=== PATIENT | female | born 1990 | race Caucasian/White ===

== ENCOUNTER 2016-08-03 10:04 | Emergency (ER) | payer MEDICAID | END 2016-08-03 11:33 | disposition home or self-care (01) | DX: T83.32XA Displacement of intrauterine contraceptive device, initial encounter (principal); Y84.8 Other medical procedures as the cause of abnormal reaction of the patient, or of later complication, without mention of misadventure at the time of the procedure; N93.9 Abnormal uterine and vaginal bleeding, unspecified ==

== ENCOUNTER 2016-09-04 18:03 | Outpatient (CLI) | payer MEDICAID | END 2016-09-04 18:04 | disposition critical access hospital (66) | LOC: EMS 18:03 | PROVIDERS: ATTEND Surgery | DX: R45.851 Suicidal ideations (principal) | CPT/HCPCS: A0425; A0429 ==

== ENCOUNTER 2016-09-04 18:19 | Emergency (ER) | payer MEDICAID ==
--- NOTE | 2016-09-04 18:29 | ED Physician Documentation ---
PD HPI MHE - Stated complaint Stated Complaint: SI - Chief complaint Chief Complaint: MHE - History obtained from History obtained from: Patient, EMS - History of Present Illness Primary symptom: Other (26-year-old woman presents by ambulance for resolved suicidal ideation. Basically there was a argument between her and her ex- boyfriend today and she was suicidal although says she is not now. 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 Psych: Depression, Anxiety, Post traumatic stress disorder Musculoskeletal: None Derm: Herpes zoster - Past Surgical History Past Surgical History: No - Present Medications Home Medications: Ambulatory Orders Medication Instructions Recorded Confirmed No Known Home Medications [No 08/03/16 08/03/16 Known Home Medications] - Allergies Allergies/Adverse Reactions: Allergies Allergy/AdvReac Type Severity Reaction Status Date / Time No Known Drug Allergies Allergy Verified 10/20/15 18:00 - Social History Does the pt smoke?: No Smoking Status: Never smoker Does the pt drink ETOH?: No Does the pt have substance abuse?: No - Family History Family history: reports: Non contributory - Immunizations Immunizations are current?: Yes - POLST Patient has POLST: No PD ED PE NORMAL - Vitals Vital signs reviewed: Yes - General General: Alert and oriented X 3, No acute distress - HEENT HEENT: PERRL, EOMI, Pharynx benign - Neck Neck: Supple, no meningeal sign, No bony TTP - Cardiac Cardiac: RRR, No murmur - Respiratory Respiratory: No respiratory distress, Clear bilaterally - Abdomen Abdomen: Soft, Non tender - Back Back: No CVA TTP, No spinal TTP - Derm Derm: Normal color, Warm and dry - Extremities Extremities: No edema, No calf tenderness / cord - Neuro Neuro: Alert and oriented X 3, Normal speech - Psych Psych: Normal mood, Normal affect Results - Vitals Vitals: Vital Signs - 24 hr 09/04/16 09/04/16 09/05/16 18:20 23:18 06:41 Temperature 36.6 C Heart Rate 105 H 76 68 Respiratory 20 20 14 Rate Blood Pressure 140/87 H 128/72 109/64 O2 Saturation 98 98 98 09/05/16 09:42 Temperature Heart Rate 68 Respiratory 12 Rate Blood Pressure 116/66 O2 Saturation 98 Oxygen O2 Source Room air - Labs Labs: Laboratory Tests 09/04/16 09/04/16 09/04/16 18:36 18:36 21:13 WBC 9.3 RBC 4.82 Hgb 14.1 Hct 42.1 MCV 87.5 MCH 29.4 MCHC 33.6 RDW 12.8 Plt Count 273 MPV 7.6 L Neut # 5.3 Lymph # 3.4 [place] # 0.6 Eos # 0.1 Baso # 0.0 Absolute Nucleated RBC 0.01 Nucleated RBCs 0.1 Sodium Potassium Chloride Carbon Dioxide Anion Gap BUN Creatinine Estimated GFR (MDRD) Glucose Calcium Total Bilirubin AST ALT Alkaline Phosphatase Total Protein Albumin Globulin Albumin/Globulin Ratio Lipase TSH Urine Color YELLOW Urine Clarity CLEAR Urine pH 6.5 Ur Specific [place] 1.025 Urine Protein NEGATIVE Urine Glucose (UA) NEGATIVE Urine Ketones NEGATIVE Urine Occult Blood NEGATIVE Urine Nitrite NEGATIVE Urine Bilirubin NEGATIVE Urine Urobilinogen 0.2 (NORMAL) Ur Leukocyte Esterase SMALL H Urine RBC 0-5 Urine WBC 0-3 Ur Squamous Epith Cells MOD Squamous H Urine Bacteria Few Urine Mucus Moderate Strands Ur Microscopic Review INDICATED Urine Culture Comments NOT INDICATED Urine HCG, Qual NEGATIVE Urine Opiates Screen NEGATIVE Ur Oxycodone Screen NEGATIVE Urine Methadone Screen NEGATIVE Ur Propoxyphene Screen NEGATIVE Ur Barbiturates Screen NEGATIVE Ur Tricyclics Screen NEGATIVE Ur Phencyclidine Scrn NEGATIVE Ur Amphetamine Screen NEGATIVE U Methamphetamines Scrn NEGATIVE U Benzodiazepines Scrn NEGATIVE Urine Cocaine Screen NEGATIVE U Cannabinoids Screen POSITIVE H Ethyl Alcohol 09/04/16 09/04/16 21:13 21:13 WBC RBC Hgb Hct MCV MCH MCHC RDW Plt Count MPV Neut # Lymph # [place] # Eos # Baso # Absolute Nucleated RBC Nucleated RBCs Sodium 139 Potassium 3.7 Chloride 104 Carbon Dioxide 27 Anion Gap 8.0 BUN 15 Creatinine 0.6 Estimated GFR (MDRD) 123 Glucose 98 Calcium 9.4 Total Bilirubin 0.7 AST 19 ALT 26 Alkaline Phosphatase 65 Total Protein 7.7 Albumin 4.6 Globulin 3.1 Albumin/Globulin Ratio 1.5 Lipase 21 L TSH 2.60 Urine Color Urine Clarity Urine pH Ur Specific [place] Urine Protein Urine Glucose (UA) Urine Ketones Urine Occult Blood Urine Nitrite Urine Bilirubin Urine Urobilinogen Ur Leukocyte Esterase Urine RBC Urine WBC Ur Squamous Epith Cells Urine Bacteria Urine Mucus Ur Microscopic Review Urine Culture Comments Urine HCG, Qual Urine Opiates Screen Ur Oxycodone Screen Urine Methadone Screen Ur Propoxyphene Screen Ur Barbiturates Screen Ur Tricyclics Screen Ur Phencyclidine Scrn Ur Amphetamine Screen U Methamphetamines Scrn U Benzodiazepines Scrn Urine Cocaine Screen U Cannabinoids Screen Ethyl Alcohol < 5.0 PD MEDICAL DECISION MAKING - ED course ED course: 26-year-old woman with resolved suicidal ideation but she feels like she does need to be voluntarily hospitalized. There is no barrier to voluntary hospitalization, but no social worker masters available at night so she requested for overnight to speak with a social worker masters in the morning. Departure - Departure Disposition: 01 Home, Self Care Clinical Impression: Suicidal ideation Condition: Good Instructions: ED Depression Follow-Up: [facility] - [place] [Provider Group] Comments: Please go to [facility] now for an intake assessment - it [place] block from the hospital on [address] Discharge Date/Time: 09/05/16 10:01
[2016-09-04 18:44] LABS: BILIRUBIN,URINE NEGATIVE (NEGATIVE); PH,URINE 6.5 PH (5.0-7.5)
[2016-09-04 18:47] LABS: HCG UR QUAL NEGATIVE; UA w/ MICROSCOPIC CHARGE YES
[2016-09-04 18:56] LABS: UR CULTURE IF IND NOT INDICATED; WBC,URINE 0-3 /HPF (0-5)
[2016-09-04] MEDS ORDERED: ACETAMINOPHEN 325 MG TABLET PO STA (18:57)
[2016-09-04] MEDS ORDERED: ACETAMINOPHEN 325 MG TABLET PO ONE (19:03)
[2016-09-04 21:29] LABS: BASOPHILS % (AUTO) 0.4 %; EOSINOPHILS # (AUTO) 0.1 10^3/uL (0.0-0.7); EOSINOPHILS % (AUTO) 0.7 %; HCT - HEMATOCRIT 42.1 % (37.0-47.0); HGB - HEMOGLOBIN 14.1 g/dL (12.0-16.0); LYMPHOCYTES # (AUTO) 3.4 10^3/uL (1.5-3.5); LYMPHOCYTES % (AUTO) 36.1 %; MEAN CORPUSCULAR HEMOGLOBIN 29.4 pg (27.0-31.0); MEAN CORPUSCULAR HGB CONC 33.6 g/dL (32.0-36.0); MEAN CORPUSCULAR VOLUME 87.5 fL (81.0-99.0); MEAN PLATELET VOLUME 7.6 fL (7.9-10.8); MONOCYTES # (AUTO) 0.6 10^3/uL (0.0-1.0); MONOCYTES % (AUTO) 6.3 %; NEUTROPHILS # (AUTO) 5.3 10^3/uL (1.5-6.6); NEUTROPHILS % (AUTO) 56.5 %; NUCLEATED RED BLOOD CELLS AUTO 0.1 /100WBC; RED BLOOD COUNT 4.82 10^6/uL (4.20-5.40); RED CELL DISTRIBUTION WIDTH 12.8 % (12.0-15.0); UNCORRECTED WHITE BLOOD COUNT 9.3 x10^3/uL; WHITE BLOOD COUNT 9.3 x10^3/uL (4.8-10.8)
[2016-09-04 21:44] LABS: ALBUMIN/GLOBULIN RATIO 1.5 (1.0-2.2); BILIRUBIN,TOTAL 0.7 mg/dL (0.2-1.0); BUN - BLOOD UREA NITROGEN 15 mg/dL (6-20); CALCIUM 9.4 mg/dL (8.5-10.3); CARBON DIOXIDE - CO2 27 mmol/L (21-32); CHLORIDE 104 mmol/L (101-111); CREATININE 0.6 mg/dL (0.4-1.0); GFR - MDRD 123 (>89); GLUCOSE 98 mg/dL (70-100); LIPASE 21 U/L (22-51); POTASSIUM 3.7 mmol/L (3.5-5.0); SODIUM 139 mmol/L (135-145); TOTAL PROTEIN 7.7 g/dL (6.7-8.2)
--- NOTE | 2016-09-05 08:09 | ED Physician Documentation ---
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 Psych: Depression, Anxiety, Post traumatic stress disorder Musculoskeletal: None Derm: Herpes zoster - Past Surgical History Past Surgical History: No - Present Medications Home Medications: Ambulatory Orders Medication Instructions Recorded Confirmed No Known Home Medications [No 08/03/16 08/03/16 Known Home Medications] - Allergies Allergies/Adverse Reactions: Allergies Allergy/AdvReac Type Severity Reaction Status Date / Time No Known Drug Allergies Allergy Verified 10/20/15 18:00 - Social History Does the pt smoke?: No Smoking Status: Never smoker Does the pt drink ETOH?: No Does the pt have substance abuse?: No - Immunizations Immunizations are current?: Yes - POLST Patient has POLST: No Results - Vitals Vitals: Vital Signs - 24 hr 09/04/16 09/04/16 09/05/16 18:20 23:18 06:41 Temperature 36.6 C Heart Rate 105 H 76 68 Respiratory 20 20 14 Rate Blood Pressure 140/87 H 128/72 109/64 O2 Saturation 98 98 98 09/05/16 09:42 Temperature Heart Rate 68 Respiratory 12 Rate Blood Pressure 116/66 O2 Saturation 98 Oxygen O2 Source Room air - Labs Labs: Laboratory Tests 09/04/16 09/04/16 09/04/16 18:36 18:36 21:13 WBC 9.3 RBC 4.82 Hgb 14.1 Hct 42.1 MCV 87.5 MCH 29.4 MCHC 33.6 RDW 12.8 Plt Count 273 MPV 7.6 L Neut # 5.3 Lymph # 3.4 [place] # 0.6 Eos # 0.1 Baso # 0.0 Absolute Nucleated RBC 0.01 Nucleated RBCs 0.1 Sodium Potassium Chloride Carbon Dioxide Anion Gap BUN Creatinine Estimated GFR (MDRD) Glucose Calcium Total Bilirubin AST ALT Alkaline Phosphatase Total Protein Albumin Globulin Albumin/Globulin Ratio Lipase TSH Urine Color YELLOW Urine Clarity CLEAR Urine pH 6.5 Ur Specific [place] 1.025 Urine Protein NEGATIVE Urine Glucose (UA) NEGATIVE Urine Ketones NEGATIVE Urine Occult Blood NEGATIVE Urine Nitrite NEGATIVE Urine Bilirubin NEGATIVE Urine Urobilinogen 0.2 (NORMAL) Ur Leukocyte Esterase SMALL H Urine RBC 0-5 Urine WBC 0-3 Ur Squamous Epith Cells MOD Squamous H Urine Bacteria Few Urine Mucus Moderate Strands Ur Microscopic Review INDICATED Urine Culture Comments NOT INDICATED Urine HCG, Qual NEGATIVE Urine Opiates Screen NEGATIVE Ur Oxycodone Screen NEGATIVE Urine Methadone Screen NEGATIVE Ur Propoxyphene Screen NEGATIVE Ur Barbiturates Screen NEGATIVE Ur Tricyclics Screen NEGATIVE Ur Phencyclidine Scrn NEGATIVE Ur Amphetamine Screen NEGATIVE U Methamphetamines Scrn NEGATIVE U Benzodiazepines Scrn NEGATIVE Urine Cocaine Screen NEGATIVE U Cannabinoids Screen POSITIVE H Ethyl Alcohol 09/04/16 09/04/16 21:13 21:13 WBC RBC Hgb Hct MCV MCH MCHC RDW Plt Count MPV Neut # Lymph # [place] # Eos # Baso # Absolute Nucleated RBC Nucleated RBCs Sodium 139 Potassium 3.7 Chloride 104 Carbon Dioxide 27 Anion Gap 8.0 BUN 15 Creatinine 0.6 Estimated GFR (MDRD) 123 Glucose 98 Calcium 9.4 Total Bilirubin 0.7 AST 19 ALT 26 Alkaline Phosphatase 65 Total Protein 7.7 Albumin 4.6 Globulin 3.1 Albumin/Globulin Ratio 1.5 Lipase 21 L TSH 2.60 Urine Color Urine Clarity Urine pH Ur Specific [place] Urine Protein Urine Glucose (UA) Urine Ketones Urine Occult Blood Urine Nitrite Urine Bilirubin Urine Urobilinogen Ur Leukocyte Esterase Urine RBC Urine WBC Ur Squamous Epith Cells Urine Bacteria Urine Mucus Ur Microscopic Review Urine Culture Comments Urine HCG, Qual Urine Opiates Screen Ur Oxycodone Screen Urine Methadone Screen Ur Propoxyphene Screen Ur Barbiturates Screen Ur Tricyclics Screen Ur Phencyclidine Scrn Ur Amphetamine Screen U Methamphetamines Scrn U Benzodiazepines Scrn Urine Cocaine Screen U Cannabinoids Screen Ethyl Alcohol < 5.0 PD MEDICAL DECISION MAKING - ED course ED course: assumed care 7 AM 09/[address] Landin's EMR note for details pt with SI, medically cleared, waiting for SW to see her this AM I went to eval pt she was resting but awakened easily, no new concerns, RRR CTAB seen by BAKARI Clay and she recommends pt be dced to go straight to [facility] for an intake assesment Departure - Departure Disposition: 01 Home, Self Care Clinical Impression: Suicidal ideation Condition: Good Instructions: ED Depression Follow-Up: [facility] - [facility] [Provider Group] Comments: Please go to [facility] now for an intake assessment - it is one block from the hospital on [address]
[2016-09-05 09:43] VITALS: BP 116/66
== END 2016-09-05 10:01 | disposition home or self-care (01) ==
LOC: EDUNIT# → ED 18:19
DX: F32.9 Major depressive disorder, single episode, unspecified (principal); R45.851 Suicidal ideations; F41.9 Anxiety disorder, unspecified; F43.10 Post-traumatic stress disorder, unspecified
CPT/HCPCS: 36415; 80053; 80306; 80320; 81001; 81025; 83690; 84443; 85025; 99283; 99284; A9270; 81003; 87086

== ENCOUNTER 2016-11-29 20:53 | Outpatient (CLI) | payer MEDICAID | END 2016-11-29 20:54 | disposition critical access hospital (66) | LOC: EMS 20:53 | PROVIDERS: ATTEND Surgery | DX: F91.8 Other conduct disorders (principal) | CPT/HCPCS: A0425; A0429 ==

== ENCOUNTER 2016-11-29 21:10 | Emergency (ER) | payer MEDICAID ==
[2016-11-29 21:23] VITALS: BP 129/86
[2016-11-29 21:37] LABS: BASOPHILS % (AUTO) 0.7 %; EOSINOPHILS % (AUTO) 0.7 %; HCT - HEMATOCRIT 39.7 % (37.0-47.0); HGB - HEMOGLOBIN 13.7 g/dL (12.0-16.0); LYMPHOCYTES % (AUTO) 17.6 %; MEAN CORPUSCULAR HEMOGLOBIN 29.8 pg (27.0-31.0); MEAN CORPUSCULAR HGB CONC 34.6 g/dL (32.0-36.0); MEAN CORPUSCULAR VOLUME 86.1 fL (81.0-99.0); MEAN PLATELET VOLUME 7.1 fL (7.9-10.8); MONOCYTES % (AUTO) 5.4 %; NEUTROPHILS % (AUTO) 75.6 %; RED BLOOD COUNT 4.61 10^6/uL (4.20-5.40); RED CELL DISTRIBUTION WIDTH 12.4 % (12.0-15.0); UNCORRECTED WHITE BLOOD COUNT 12.3 x10^3/uL; WHITE BLOOD COUNT 12.3 x10^3/uL (4.8-10.8)
--- NOTE | 2016-11-29 21:38 | ED Physician Documentation ---
PD HPI MHE - Stated complaint Stated Complaint: MHE - Chief complaint Chief Complaint: MHE - History obtained from History obtained from: Patient, Friend, EMS - History of Present Illness Primary symptom: Suicidal ideation, Self harm - other, Depression, Aggressive behavior, Off meds Timing - onset: Today Contributing factors: Family Similar symptoms before: Work up / diagnostics, Treatment, Follow up Recently seen: Not recently seen - Additional information Additional information: Patient is a 26 year old female with a history of anxiety, depression and ptsd who currently is not taking any medications who is presenting to the emergency department for agitation and suicidal ideation. Patient states that her ex came over the house and stated that he wanted custody of the children. patient became very upset and kept hitting her head against the wall and hitting herself throughout her body including her throat. Patient states that she was looking for a knife to stab herself in the abdomen. Patient states she had the same reaction last week when he asked for custody. Review of Systems Constitutional: denies: Fever, Chills Eyes: denies: Decreased vision, Photophobia, Irritation Ears: denies: Ear pain, Drainage/discharge Nose: denies: Rhinorrhea / runny nose, Congestion Throat: denies: Dental pain / toothache, Sore throat Respiratory: denies: Cough, Wheezing GI: denies: Nausea, Vomiting, Constipation, Diarrhea : denies: Dysuria, Frequency, Hesitancy Skin: denies: Rash, Lesions Musculoskeletal: denies: Neck pain, Back pain Neurologic: denies: Generalized weakness, Focal weakness, Numbness Psychiatric: reports: Depressed. 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 Psych: Depression, Anxiety, Post traumatic stress disorder Musculoskeletal: None Derm: Herpes zoster - Past Surgical History Past Surgical History: No - Present Medications Home Medications: Ambulatory Orders Medication Instructions Recorded Confirmed No Known Home Medications [No 08/03/16 08/03/16 Known Home Medications] - Allergies Allergies/Adverse Reactions: Allergies Allergy/AdvReac Type Severity Reaction Status Date / Time No Known Drug Allergies Allergy Verified 10/20/15 18:00 - Social History Does the pt smoke?: No Smoking Status: Never smoker Does the pt drink ETOH?: No Does the pt have substance abuse?: No - Immunizations Immunizations are current?: Yes - POLST Patient has POLST: No PD ED PE NORMAL - Vitals Vital signs reviewed: Yes - General General: Alert and oriented X 3, No acute distress, Well developed/nourished - HEENT HEENT: Atraumatic, Moist mucous membranes, Pharynx benign, Dentition benign - Neck Neck: Supple, no meningeal sign, No bony TTP - Cardiac Cardiac: RRR, No murmur - Respiratory Respiratory: No respiratory distress - Abdomen Abdomen: Soft - Derm Derm: Normal color, Warm and dry - Neuro Neuro: Alert and oriented X 3, No motor deficit, No sensory deficit, Normal speech PD ED PE EXPANDED - Extremities Extremities: Right shoulder (full rom, no bony deformity or tenderness), Right hand (tenderness to palpation of right hand, no bony tenderness, no ecchymosis) - Psych Psych: Agitated. No: Suicidal, Homicidal Results - Vitals Vitals: Vital Signs - 24 hr 11/29/16 21:21 Temperature 37.3 C Heart Rate 66 Respiratory 16 Rate Blood Pressure 129/86 H O2 Saturation 96 Oxygen O2 Source Room air - Labs Labs: Laboratory Tests 11/29/16 11/29/16 11/29/16 21:26 21:26 21:26 WBC 12.3 H RBC 4.61 Hgb 13.7 Hct 39.7 MCV 86.1 MCH 29.8 MCHC 34.6 RDW 12.4 Plt Count 265 MPV 7.1 L Neut # Not Reportable Lymph # Not Reportable [place] # Not Reportable Eos # Not Reportable Baso # Not Reportable Absolute Nucleated RBC Not Reportable Total Counted 100 Band Neuts % (Manual) 0 Neutrophils # (Manual) 7.3 H Lymphocytes # (Manual) 4.4 H Monocytes # (Manual) 0.6 Nucleated RBCs Not Reportable Differential Comment MANUAL DIFFERENTIAL Manual Slide Review Indicated Platelet Estimate NORMAL (130-450,000) Platelet Morphology NORMAL APPEARANCE RBC Morph Micro Appear NORMAL APPEARANCE Sodium 138 Potassium 3.5 Chloride 106 Carbon Dioxide 25 Anion Gap 7.0 BUN 18 Creatinine 0.8 Estimated GFR (MDRD) 88 L Glucose 106 H Calcium 9.2 Total Bilirubin 1.0 AST 18 ALT 17 Alkaline Phosphatase 60 Total Protein 7.3 Albumin 4.4 Globulin 2.9 Albumin/Globulin Ratio 1.5 Lipase 28 TSH 2.02 Ur Specific [place] Urine HCG, Qual Salicylates < 6.0 Urine Opiates Screen Ur Oxycodone Screen Urine Methadone Screen Ur Propoxyphene Screen Acetaminophen < 10 L Ur Barbiturates Screen Ur Tricyclics Screen Ur Phencyclidine Scrn Ur Amphetamine Screen U Methamphetamines Scrn U Benzodiazepines Scrn Urine Cocaine Screen U Cannabinoids Screen Ethyl Alcohol < 5.0 11/29/16 11/29/16 22:20 22:20 WBC RBC Hgb Hct MCV MCH MCHC RDW Plt Count MPV Neut # Lymph # [place] # Eos # Baso # Absolute Nucleated RBC Total Counted Band Neuts % (Manual) Neutrophils # (Manual) Lymphocytes # (Manual) Monocytes # (Manual) Nucleated RBCs Differential Comment Manual Slide Review Platelet Estimate Platelet Morphology RBC Morph Micro Appear Sodium Potassium Chloride Carbon Dioxide Anion Gap BUN Creatinine Estimated GFR (MDRD) Glucose Calcium Total Bilirubin AST ALT Alkaline Phosphatase Total Protein Albumin Globulin Albumin/Globulin Ratio Lipase TSH Ur Specific [place] 1.020 Urine HCG, Qual NEGATIVE Salicylates Urine Opiates Screen NEGATIVE Ur Oxycodone Screen NEGATIVE Urine Methadone Screen NEGATIVE Ur Propoxyphene Screen NEGATIVE Acetaminophen Ur Barbiturates Screen NEGATIVE Ur Tricyclics Screen NEGATIVE Ur Phencyclidine Scrn NEGATIVE Ur Amphetamine Screen NEGATIVE U Methamphetamines Scrn NEGATIVE U Benzodiazepines Scrn NEGATIVE Urine Cocaine Screen NEGATIVE U Cannabinoids Screen NEGATIVE Ethyl Alcohol PD MEDICAL DECISION MAKING - ED course Complexity details: reviewed old records, re-evaluated patient, considered differential, d/w patient, d/w family ED course: Patient was seen and examined at bedside. After being originally agitated patient calmed down quickly. Patients injuries required no imaging. Patient denied any suicidal or homicidal ideation. Patient stated that she would stay away from her ex- and go home with her current boyfriend. Patient and boyfriend felt safe and comfortable with the plan. patient required no further work up and was stable for discharge with outpatietn follow up. Departure - Departure Disposition: Home, Self Care Clinical Impression: Self-harm Condition: Good Instructions: ED Stress React Follow-Up: primary, therapist [Other] - Tomorrow Comments: It is important that your follow up with your therapist this week. You might have more pain tomorrow and you can take motrin or tylenol as needed for pain. You should also ice the injured areas. You should return to the emergency department for any thoughts of hurting yourself or anyone else. Discharge Date/Time: 11/29/16 22:24
[2016-11-29 21:40] LABS: BAND NEUTROPHILS % (MANUAL) 0 %
[2016-11-29 21:48] LABS: ALBUMIN/GLOBULIN RATIO 1.5 (1.0-2.2); BUN - BLOOD UREA NITROGEN 18 mg/dL (6-20); CALCIUM 9.2 mg/dL (8.5-10.3); CARBON DIOXIDE - CO2 25 mmol/L (21-32); CHLORIDE 106 mmol/L (101-111); CREATININE 0.8 mg/dL (0.4-1.0); GFR - MDRD 88 (>89); GLUCOSE 106 mg/dL (70-100); LIPASE 28 U/L (22-51); POTASSIUM 3.5 mmol/L (3.5-5.0); SALICYLATE < 6.0 mg/dL; SODIUM 138 mmol/L (135-145); TOTAL PROTEIN 7.3 g/dL (6.7-8.2)
[2016-11-29 21:50] LABS: ACETAMINOPHEN < 10 ug/mL (10-30)
[2016-11-29 22:03] LABS: LYMPHOCYTES % (MANUAL) 36 %; NEUTROPHILS % (MANUAL) 59 %; TOTAL CELLS COUNTED 100
[2016-11-29 22:04] LABS: NP AUTO DIFFERENTIAL? YES; NP MAN DIFFERENTIAL? NO; PLATELET ESTIMATE, MANUAL NORMAL (130-450,000) (NORMAL); PLATELET MORPHOLOGY NORMAL APPEARANCE (NORMAL)
[2016-11-29 22:32] LABS: HCG UR QUAL NEGATIVE
== END 2016-11-29 22:24 | disposition home or self-care (01) ==
LOC: EDUNIT# → ED 21:10
DX: R45.1 Restlessness and agitation (principal); Z91.5 Personal history of self-harm; F32.9 Major depressive disorder, single episode, unspecified; F41.9 Anxiety disorder, unspecified; M79.641 Pain in right hand
CPT/HCPCS: 36415; 80053; 80306; 80307; 80320; 80329; 81025; 83690; 84443; 85025; 99283

== ENCOUNTER 2016-12-08 10:59 | Emergency (ER) | payer OTHER, MEDICAID ==
[2016-12-08 11:06] VITALS: BP 121/75
[2016-12-08 11:27] LABS: HCG UR QUAL NEGATIVE
[2016-12-08] MEDS ORDERED: ACETAMINOPHEN 325 MG TABLET PO STA (11:28)
[2016-12-08] MEDS ORDERED: IBUPROFEN 600 MG TABLET PO STA (11:29)
--- NOTE | 2016-12-08 11:32 | ED Physician Documentation ---
PD HPI Fall - Stated complaint Stated Complaint: GLF/LEFT SIDE PX - Chief complaint Chief Complaint: General - History obtained from History obtained from: Patient, Family - History of Present Illness Mechanism of injury: Slipped Fall distance: Standing position Where injury occurred: Work Timing - onset: How many hours ago (1.5) Injury(ies) location: Chest (L posterior ribs and low back), Back Pain level max: 6 Pain level now: 4 Quality of pain: Pain Associated symptoms: No: LOC, AMS, Amnesia, Seizures, Ear drainage, Nasal drainage, Neck pain, Weakness, Paresthesias, Dyspnea, Nausea / vomiting, Hematemesis, Abdominal distension Symptoms improve with: Rest Worsens with: Movement, Palpation Contributing factors: No: Anticoagulated, Intoxicated Similar symptoms before: Has not had sx before Recently seen: Not recently seen - Additional information Additional information: states tripped while cleaning a bathroom and hit her L side on the bathtub. Has not taken anything for pain. No LOC. No head injury. 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 Psych: Depression, Anxiety, Post traumatic stress disorder Musculoskeletal: None Derm: Herpes zoster - Past Surgical History Past Surgical History: No - Present Medications Home Medications: Ambulatory Orders Medication Instructions Recorded Confirmed Cyclobenzaprine [Flexeril] 10 mg PO TID PRN #20 tablet 12/08/16 Ibuprofen [Motrin] 800 mg PO Q8H PRN #30 tablet 12/08/16 - Allergies Allergies/Adverse Reactions: Allergies Allergy/AdvReac Type Severity Reaction Status Date / Time No Known Drug Allergies Allergy Verified 12/08/16 11:12 - Social History Does the pt smoke?: No Smoking Status: Never smoker Does the pt drink ETOH?: No Does the pt have substance abuse?: No - Immunizations Immunizations are current?: Yes - POLST Patient has POLST: No PD ED PE NORMAL - Vitals Vital signs reviewed: Yes - General General: Alert and oriented X 3, No acute distress, Well developed/nourished - HEENT HEENT: Atraumatic, PERRL, Moist mucous membranes - Neck Neck: Supple, no meningeal sign, No bony TTP - Cardiac Cardiac: RRR - Respiratory Respiratory: No respiratory distress, Clear bilaterally - Abdomen Abdomen: Soft, Non tender - Back Back: No spinal TTP, Other (TTP over the L posterior ribs 7-10. no crepitus. no ecchymosis) - Derm Derm: Warm and dry - Neuro Neuro: Alert and oriented X 3 - Psych Psych: Normal mood, Normal affect Results - Vitals Vitals: Vital Signs - 24 hr 12/08/16 11:02 Temperature 36.5 C Heart Rate 74 Respiratory 16 Rate Blood Pressure 121/75 O2 Saturation 99 Oxygen O2 Source Room air - Labs Labs: Laboratory Tests 12/08/16 11:05 Ur Specific [place] 1.025 Urine HCG, Qual NEGATIVE - Rads (name of study) L rib xray Radiology: Prelim report reviewed, EMP read contemporaneously, See rad report ( Normal chest and rib radiography) PD MEDICAL DECISION MAKING - ED course Complexity details: reviewed results, re-evaluated patient, considered differential, d/w patient, d/w family ED course: Patient is a 26-year-old female who presents to the emergency department after a slip and fall at work. No acute findings on x-ray. Pain well controlled. Appears to have some muscle spasm in the back as well and will prescribe Flexeril for this. She is well-appearing, nontoxic. Afebrile. No pneumothorax. Patient counseled regarding signs and symptoms for which I believe and urgent re-evaluation would be necessary. Patient with good understanding of and agreement to plan and is comfortable going home at this time This document was made in part using voice recognition software. While efforts are made to proofread this document, sound alike and grammatical errors may occur. Departure - Departure Disposition: 01 Home, Self Care Clinical Impression: Back muscle spasm Contusion of rib on left side Qualifiers: Encounter type: initial encounter Qualified Code(s): S20.212A - Contusion of left front wall of thorax, initial encounter Condition: Good Instructions: ED Contusion Chest Wall Follow-Up: your,doctor within 1 week [Other] Prescriptions: Cyclobenzaprine [Flexeril] 10 mg PO TID PRN #20 tablet PRN Reason: Spasms Ibuprofen [Motrin] 800 mg PO Q8H PRN #30 tablet PRN Reason: PAIN &/OR FEVER Comments: Return if you worsen. This should improve over the next few days. Do not drive or operate heavy machinery while on the flexeril. Forms: Activity restrictions Discharge Date/Time: 12/08/16 13:06
[2016-12-08] MEDS ORDERED: IBUPROFEN 600 MG TABLET PO ONE (11:36)
[2016-12-08] MEDS ORDERED: ACETAMINOPHEN 325 MG TABLET PO ONE (11:36)
--- NOTE | 2016-12-08 12:44 | XRAY Preliminary Report ---
Exam: XR Ribs w/PA Chest LT IMPRESSION: Normal chest and rib radiography. [facility] SITE ID: [id number]
[2016-12-08] MEDS ORDERED: CYCLOBENZAPRINE 10 MG TABLET PO STA (12:45)
--- NOTE | 2016-12-08 12:47 | XRAY Report ---
EXAM: PA CHEST AND LEFT RIB RADIOGRAPHY EXAM DATE: 12/08/2016 11:52 AM. CLINICAL HISTORY: Fall, L Lower rib pain. COMPARISON: None. TECHNIQUE: 1 view of the chest and 2 views of the ribs. FINDINGS: Bones: Normal. No fracture or bone lesion. Lungs: No focal opacities. No pneumothorax. No pleural effusions. Mediastinum: Heart and mediastinal contours are unremarkable. Other: None. IMPRESSION: Normal chest and rib radiography. [facility] Referring Provider Line: [phone] SITE ID: [id number]
[2016-12-08] MEDS ORDERED: CYCLOBENZAPRINE 10 MG TABLET PO ONE (12:51)
== END 2016-12-08 13:06 | disposition home or self-care (01) ==
LOC: ED 10:59
DX: M62.830 Muscle spasm of back (principal); S20.212A Contusion of left front wall of thorax, initial encounter; W01.0XXA Fall on same level from slipping, tripping and stumbling without subsequent striking against object, initial encounter; Y93.E9 Activity, other interior property and clothing maintenance; Y99.0 Civilian activity done for income or pay
CPT/HCPCS: 1040M; 71101; 81025; 99283; A9270

== ENCOUNTER 2016-12-22 11:20 | Outpatient (CLI) | payer MEDICAID | END 2016-12-22 11:21 | disposition critical access hospital (66) | LOC: EMS 11:20 | PROVIDERS: ATTEND Surgery | DX: S51.812A Laceration without foreign body of left forearm, initial encounter (principal); S51.811A Laceration without foreign body of right forearm, initial encounter; X78.9XXA Intentional self-harm by unspecified sharp object, initial encounter | CPT/HCPCS: A0425; A0429 ==

== ENCOUNTER 2016-12-22 11:41 | Emergency (ER) | payer MEDICAID ==
[2016-12-22 12:23] LABS: BASOPHILS % (AUTO) 0.6 %; EOSINOPHILS # (AUTO) 0.1 10^3/uL (0.0-0.7); EOSINOPHILS % (AUTO) 1.1 %; HCT - HEMATOCRIT 40.7 % (37.0-47.0); HGB - HEMOGLOBIN 14.1 g/dL (12.0-16.0); LYMPHOCYTES # (AUTO) 3.4 10^3/uL (1.5-3.5); LYMPHOCYTES % (AUTO) 44.6 %; MEAN CORPUSCULAR HEMOGLOBIN 29.9 pg (27.0-31.0); MEAN CORPUSCULAR HGB CONC 34.6 g/dL (32.0-36.0); MEAN CORPUSCULAR VOLUME 86.2 fL (81.0-99.0); MEAN PLATELET VOLUME 7.1 fL (7.9-10.8); MONOCYTES # (AUTO) 0.5 10^3/uL (0.0-1.0); MONOCYTES % (AUTO) 6.2 %; NEUTROPHILS # (AUTO) 3.6 10^3/uL (1.5-6.6); NEUTROPHILS % (AUTO) 47.5 %; RED BLOOD COUNT 4.72 10^6/uL (4.20-5.40); RED CELL DISTRIBUTION WIDTH 12.5 % (12.0-15.0); UNCORRECTED WHITE BLOOD COUNT 7.5 x10^3/uL; WHITE BLOOD COUNT 7.5 x10^3/uL (4.8-10.8)
[2016-12-22 12:36] LABS: ALBUMIN/GLOBULIN RATIO 1.5 (1.0-2.2); BILIRUBIN,TOTAL 1.4 mg/dL (0.2-1.0); BUN - BLOOD UREA NITROGEN 12 mg/dL (6-20); CALCIUM 9.1 mg/dL (8.5-10.3); CARBON DIOXIDE - CO2 25 mmol/L (21-32); CHLORIDE 108 mmol/L (101-111); CREATININE 0.5 mg/dL (0.4-1.0); GFR - MDRD 152 (>89); GLUCOSE 104 mg/dL (70-100); LIPASE 18 U/L (22-51); POTASSIUM 3.7 mmol/L (3.5-5.0); SALICYLATE < 6.0 mg/dL; SODIUM 141 mmol/L (135-145); TOTAL PROTEIN 7.6 g/dL (6.7-8.2)
--- NOTE | 2016-12-22 12:39 | ED Physician Documentation ---
PD HPI MHE - Stated complaint Stated Complaint: SI - Chief complaint Chief Complaint: MHE - History obtained from History obtained from: Patient - History of Present Illness Primary symptom: Suicidal ideation, Self harm - cut, Depression Timing - onset: Other (several days ago) Pain level max: 0 Pain level now: 0 Contributing factors: Family (fighting with family) Similar symptoms before: Diagnosis (depression, SI) Recently seen: Not recently seen - Additional information Additional information: [facility] has no counselor and no PCP. [facility] went to a facility in [facility] last year and feels that it helped. Review of Systems Ten Systems: 10 systems reviewed and negative Constitutional: denies: Fever, Chills Throat: denies: Sore throat Cardiac: denies: Chest pain / pressure Respiratory: denies: Cough GI: denies: Nausea, Vomiting, Diarrhea Skin: denies: Rash Musculoskeletal: denies: Neck pain, Back pain Neurologic: denies: Headache Psychiatric: reports: Depressed, Suicidal. denies: Homicidal, Hallucinations, Delusions, Insomnia PD PAST MEDICAL HISTORY - Past Medical History Past Medical History: Yes Endocrine/Autoimmune: None GI: None SECURITY REP: None : None Psych: Depression, Anxiety, Post traumatic stress disorder Musculoskeletal: None Derm: Herpes zoster - Past Surgical History Past Surgical History: No - Allergies Allergies/Adverse Reactions: Allergies Allergy/AdvReac Type Severity Reaction Status Date / Time No Known Drug Allergies Allergy Verified 12/08/16 11:12 - Living Situation Living Situation: reports: With family Living Arrangement: reports: At home - Social History Does the pt smoke?: No Smoking Status: Never smoker Does the pt drink ETOH?: No Does the pt have substance abuse?: No - Family History Family history: reports: Non contributory - Immunizations Immunizations are current?: Yes - POLST Patient has POLST: No PD ED PE NORMAL - Vitals Vital signs reviewed: Yes - General General: Alert and oriented X 3, No acute distress, Well developed/nourished - HEENT HEENT: PERRL, Moist mucous membranes - Neck Neck: Supple, no meningeal sign - Cardiac Cardiac: RRR, Strong equal pulses - Respiratory Respiratory: No respiratory distress, Clear bilaterally - Abdomen Abdomen: Soft, Non tender, Non distended - Derm Derm: Warm and dry - Extremities Extremities: Other (abrasions to the B forearms. ) - Neuro Neuro: Alert and oriented X 3 - Psych Psych: Normal mood, Normal affect Results - Vitals Vitals: Vital Signs - 24 hr 12/22/16 11:50 Temperature 36.9 C Heart Rate 65 Respiratory 16 Rate Blood Pressure 118/67 O2 Saturation 95 Oxygen O2 Source Room air - Labs Labs: Laboratory Tests 12/22/16 12/22/16 12/22/16 12:10 12:10 12:10 WBC 7.5 RBC 4.72 Hgb 14.1 Hct 40.7 MCV 86.2 MCH 29.9 MCHC 34.6 RDW 12.5 Plt Count 281 MPV 7.1 L Neut # 3.6 Lymph # 3.4 Turner # 0.5 Eos # 0.1 Baso # 0.0 Absolute Nucleated RBC 0.00 Nucleated RBCs 0.0 Sodium 141 Potassium 3.7 Chloride 108 Carbon Dioxide 25 Anion Gap 8.0 BUN 12 Creatinine 0.5 Estimated GFR (MDRD) 152 Glucose 104 H Calcium 9.1 Total Bilirubin 1.4 H AST 18 ALT 19 Alkaline Phosphatase 59 Total Protein 7.6 Albumin 4.5 Globulin 3.1 Albumin/Globulin Ratio 1.5 Lipase 18 L Urine Color Urine Clarity Urine pH Ur Specific [place] Urine Protein Urine Glucose (UA) Urine Ketones Urine Occult Blood Urine Nitrite Urine Bilirubin Urine Urobilinogen Ur Leukocyte Esterase Ur Microscopic Review Urine Culture Comments Urine HCG, Qual Salicylates < 6.0 Urine Opiates Screen Ur Oxycodone Screen Urine Methadone Screen Ur Propoxyphene Screen Acetaminophen < 10 L Ur Barbiturates Screen Ur Tricyclics Screen Ur Phencyclidine Scrn Ur Amphetamine Screen U Methamphetamines Scrn U Benzodiazepines Scrn Urine Cocaine Screen U Cannabinoids Screen Ethyl Alcohol < 5.0 12/22/16 12/22/16 12:31 12:31 WBC RBC Hgb Hct MCV MCH MCHC RDW Plt Count MPV Neut # Lymph # Turner # Eos # Baso # Absolute Nucleated RBC Nucleated RBCs Sodium Potassium Chloride Carbon Dioxide Anion Gap BUN Creatinine Estimated GFR (MDRD) Glucose Calcium Total Bilirubin AST ALT Alkaline Phosphatase Total Protein Albumin Globulin Albumin/Globulin Ratio Lipase Urine Color YELLOW Urine Clarity CLEAR Urine pH 6.0 Ur Specific [place] >=1.030 H Urine Protein NEGATIVE Urine Glucose (UA) NEGATIVE Urine Ketones NEGATIVE Urine Occult Blood NEGATIVE Urine Nitrite NEGATIVE Urine Bilirubin NEGATIVE Urine Urobilinogen 0.2 (NORMAL) Ur Leukocyte Esterase NEGATIVE Ur Microscopic Review NOT INDICATED Urine Culture Comments NOT INDICATED Urine HCG, Qual NEGATIVE Salicylates Urine Opiates Screen NEGATIVE Ur Oxycodone Screen NEGATIVE Urine Methadone Screen NEGATIVE Ur Propoxyphene Screen NEGATIVE Acetaminophen Ur Barbiturates Screen NEGATIVE Ur Tricyclics Screen NEGATIVE Ur Phencyclidine Scrn NEGATIVE Ur Amphetamine Screen NEGATIVE U Methamphetamines Scrn NEGATIVE U Benzodiazepines Scrn NEGATIVE Urine Cocaine Screen NEGATIVE U Cannabinoids Screen POSITIVE H Ethyl Alcohol PD MEDICAL DECISION MAKING - ED course Complexity details: reviewed results, re-evaluated patient, considered differential, d/w patient, d/w foreign legal consultant ED course: Medically clear for psychiatric care. SW consulted, Estela, and will try voluntary placement. 1630 - Dr. Tejeda, Mclennanshelbi leung graciously accepts in transfer. Patient calm and cooperative throughout ED stay. This document was made in part using voice recognition software. While efforts are made to proofread this document, sound alike and grammatical errors may occur. Departure - Departure Disposition: 65 Psych Hosp/Unit DC/Xfer Clinical Impression: Depressive disorder Condition: Good
[2016-12-22 12:42] LABS: BILIRUBIN,URINE NEGATIVE (NEGATIVE); UA CHARGE (STRIP ONLY) YES; UR CULTURE IF IND NOT INDICATED
[2016-12-22 12:43] LABS: HCG UR QUAL NEGATIVE
[2016-12-22 12:44] LABS: ACETAMINOPHEN < 10 ug/mL (10-30)
[2016-12-22 18:48] VITALS: BP 112/80
== END 2016-12-22 18:50 ==
LOC: EDUNIT# → ED 11:41
DX: F32.9 Major depressive disorder, single episode, unspecified (principal); S50.812A Abrasion of left forearm, initial encounter; S50.811A Abrasion of right forearm, initial encounter; W45.8XXA Other foreign body or object entering through skin, initial encounter
CPT/HCPCS: 36415; 80053; 80306; 80307; 80320; 80329; 81001; 81003; 81025; 83690; 85025; 87086; 99283; 99284; 99285

== ENCOUNTER 2017-02-08 14:49 | Outpatient (CLI) | payer MEDICAID ==
[2017-02-08 19:43] LABS: BASOPHILS % (AUTO) 0.4 %; EOSINOPHILS # (AUTO) 0.1 10^3/uL (0.0-0.7); EOSINOPHILS % (AUTO) 1.2 %; HCT - HEMATOCRIT 41.4 % (37.0-47.0); HGB - HEMOGLOBIN 14.1 g/dL (12.0-16.0); LYMPHOCYTES % (AUTO) 41.7 %; MEAN CORPUSCULAR HEMOGLOBIN 29.6 pg (27.0-31.0); MEAN CORPUSCULAR HGB CONC 34.1 g/dL (32.0-36.0); MEAN CORPUSCULAR VOLUME 86.6 fL (81.0-99.0); MONOCYTES # (AUTO) 0.6 10^3/uL (0.0-1.0); MONOCYTES % (AUTO) 8.2 %; NEUTROPHILS # (AUTO) 3.5 10^3/uL (1.5-6.6); NEUTROPHILS % (AUTO) 48.5 %; RED BLOOD COUNT 4.77 10^6/uL (4.20-5.40); RED CELL DISTRIBUTION WIDTH 12.3 % (12.0-15.0); UNCORRECTED WHITE BLOOD COUNT 7.2 x10^3/uL; WHITE BLOOD COUNT 7.2 x10^3/uL (4.8-10.8)
[2017-02-08 20:08] LABS: ALBUMIN/GLOBULIN RATIO 1.4 (1.0-2.2); BILIRUBIN,TOTAL 1.1 mg/dL (0.2-1.0); CREATININE 0.6 mg/dL (0.4-1.0); POTASSIUM 3.8 mmol/L (3.5-5.0); TOTAL PROTEIN 7.5 g/dL (6.7-8.2)
[2017-02-08 20:41] LABS: HEMOGLOBIN A1C 0.48 g/dL
== END 2017-02-08 14:50 | disposition home or self-care (01) ==
LOC: LAB.N 14:49
PROVIDERS: ATTEND Physician Assistant Medical
DX: E66.3 Overweight (principal); L83 Acanthosis nigricans
CPT/HCPCS: 36415; 80053; 83036; 85025

== ENCOUNTER 2017-07-18 15:27 | Outpatient (CLI) | payer MEDICAID ==
[2017-07-19 13:21] LABS: HEPATITIS B SURFACE ANTIGEN NON-REACTIVE (NON-REACTIVE); HEPATITIS C ANTIBODY NON-REACTIVE (NON-REACTIVE)
[2017-07-19 14:27] LABS: HIV AG/AB 4TH GEN NON-REACTIVE (NON-REACTIVE)
== END 2017-07-18 15:28 | disposition home or self-care (01) ==
LOC: LAB 15:27
PROVIDERS: ATTEND Obstetrics & Gynecology
DX: Z11.3 Encounter for screening for infections with a predominantly sexual mode of transmission (principal)
CPT/HCPCS: 36415; 81599; 86592; 86803; 87340; 87389

== ENCOUNTER 2017-09-20 08:00 | Outpatient (CLI) | payer MEDICAID | END 2017-09-20 23:59 | disposition home or self-care (01) | LOC: LAB.R 08:00 | PROVIDERS: ATTEND Nurse Practitioner Obstetrics & Gynecology | DX: Z11.3 Encounter for screening for infections with a predominantly sexual mode of transmission (principal); N89.8 Other specified noninflammatory disorders of vagina | CPT/HCPCS: 87480; 87491; 87510; 87591; 87660 ==

== ENCOUNTER 2017-09-20 15:23 | Outpatient (CLI) | payer MEDICAID ==
[2017-09-21 12:12] LABS: HIV AG/AB 4TH GEN NON-REACTIVE (NON-REACTIVE)
[2017-09-24 12:26] LABS: HSV 1 IGG TYPE SPECIFIC AB >58.00 index; HSV 2 IGG TYPE SPECIFIC AB <0.90 index
== END 2017-09-20 15:24 | disposition home or self-care (01) ==
LOC: LAB 15:23
PROVIDERS: ATTEND Nurse Practitioner Obstetrics & Gynecology
DX: Z11.3 Encounter for screening for infections with a predominantly sexual mode of transmission (principal)
CPT/HCPCS: 36415; 81599; 86592; 86695; 86696; 87389

== ENCOUNTER 2017-11-17 22:46 | Emergency (ER) | payer MEDICAID ==
[2017-11-17 22:58] VITALS: BP 131/74
[2017-11-17 23:12] LABS: BILIRUBIN,URINE NEGATIVE (NEGATIVE); GLUCOSE, URINE (UA) NEGATIVE (NEGATIVE); KETONES,URINE (UA) NEGATIVE (NEGATIVE); LEUKOCYTE ESTERASE, URINE SMALL (NEGATIVE); NITRITE,URINE NEGATIVE (NEGATIVE); OCCULT BLOOD,URINE NEGATIVE (NEGATIVE); PROTEIN,URINE NEGATIVE (NEGATIVE); UROBILINOGEN,URINE 0.2 (NORMAL) E.U./dL (NORMAL)
[2017-11-17 23:23] LABS: CLARITY,URINE SL. CLOUDY (CLEAR)
[2017-11-17 23:24] LABS: BACTERIA,URINE None Seen /HPF (None Seen); MUCUS,URINE Marked Strands; RBC,URINE 0-5 /HPF (0-5); SQUAMOUS EPITHELIAL CELL,UR MANY Squamous (<= Few)
[2017-11-17 23:25] LABS: HCG UR QUAL NEGATIVE
--- NOTE | 2017-11-18 00:31 | ED Physician Documentation ---
PD HPI FEMALE - Stated complaint Stated Complaint: BILAT SIDE PX AND BACK PX - Chief complaint Chief Complaint: UTI - History obtained from History obtained from: Patient - History of Present Illness Timing - duration: Days (few) Recently seen: Emergency Dept (1.5 wks ago for UTI.) - Additional information Additional information: The patient is a 27-year-old female who presents with vaginal itching. Her symptoms started "a few days ago." She was seen at [facility] Emergency [facility] 1.5 weeks ago, and was diagnosed with urinary tract infection, for which she was treated with cephalexin. She currently denies dysuria. She denies fever. She does report mild nausea, without vomiting. She reports mild lower abdominal discomfort. Review of Systems Constitutional: denies: Fever Nose: denies: Congestion Throat: denies: Sore throat Respiratory: denies: Cough GI: reports: Abdominal Pain (Mild lower abdominal discomfort.), Nausea. denies : Vomiting : reports: Discharge (scant), Other (Vaginal itching.). denies: Dysuria Skin: denies: Rash Neurologic: denies: Headache PD PAST MEDICAL HISTORY - Past Medical History Past Medical History: Yes Endocrine/Autoimmune: None GI: None PURSE SEINER: None : None Psych: Depression, Anxiety, Post traumatic stress disorder Musculoskeletal: None Derm: Herpes zoster - Past Surgical History Past Surgical History: No - Present Medications Home Medications: Ambulatory Orders Medication Instructions Recorded Confirmed Fluconazole [Diflucan] 150 mg PO ONCE #1 tablet 11/18/17 - Allergies Allergies/Adverse Reactions: Allergies Allergy/AdvReac Type Severity Reaction Status Date / Time No Known Drug Allergies Allergy Verified 12/08/16 11:12 - Social History Does the pt smoke?: No Smoking Status: Never smoker Does the pt drink ETOH?: Yes Does the pt have substance abuse?: No Substance Use and Type: Marijuana - Immunizations Immunizations are current?: Yes - POLST Patient has POLST: No PD ED PE NORMAL - Vitals Vital signs reviewed: Yes (borderline systolic hypertension initially.) - General General: Alert and oriented X 3, Well developed/nourished - HEENT HEENT: Atraumatic - Neck Neck: No adenopathy - Cardiac Cardiac: RRR - Respiratory Respiratory: No respiratory distress, Clear bilaterally - Abdomen Abdomen: Normal bowel sounds, Soft, Non tender, No organomegaly - Back Back: No CVA TTP - Derm Derm: No rash - Neuro Neuro: Alert and oriented X 3, Normal speech Results - Vitals Vitals: Oxygen O2 Source Room air - Labs Labs: Laboratory Tests 11/17/17 11/17/17 23:03 23:03 Urine Color YELLOW Urine Clarity SL. CLOUDY Urine pH 6.0 Ur Specific [place] 1.025 1.025 Urine Protein NEGATIVE Urine Glucose (UA) NEGATIVE Urine Ketones NEGATIVE Urine Occult Blood NEGATIVE Urine Nitrite NEGATIVE Urine Bilirubin NEGATIVE Urine Urobilinogen 0.2 (NORMAL) Ur Leukocyte Esterase SMALL H Urine RBC 0-5 Urine WBC 6-10 H Ur Squamous Epith Cells MANY Squamous H Urine Bacteria None Seen Urine Mucus Marked Strands Ur Microscopic Review INDICATED Urine Culture Comments NOT INDICATED Urine HCG, Qual NEGATIVE PD MEDICAL DECISION MAKING - ED course Complexity details: reviewed old records, reviewed results, re-evaluated patient , considered differential, d/w patient ED course: The patient's presentation is most likely due to yeast vaginitis. Given her clinical presentation, and recent antibiotic therapy, her symptoms are presumed to be due to yeast vaginitis. Pelvic exam was not performed, and vaginal swab was not performed. Urinalysis is negative for urinary tract infection. She is being discharged with prescription for Diflucan. I discussed with her and her male mixer lever operator the diagnosis, outpatient treatment and follow-up, as well as potentially worrisome signs or symptoms that should prompt reevaluation in the emergency department. - Sepsis Event Vital Signs: Oxygen O2 Source Room air Departure - Departure Disposition: 01 Home, Self Care Clinical Impression: Yeast vaginitis Condition: Stable Instructions: ED Vaginal Infec Fungal Mary Follow-Up: Jay Jay Wheatley PA-C [Primary Care Provider] - Prescriptions: Fluconazole [Diflucan] 150 mg PO ONCE #1 tablet Comments: Take Diflucan as prescribed. Follow up with your primary physician within 2 weeks. Call to schedule an appointment. Return to the emergency department if you develop increasing vaginal pain, fever with shaking chills, persistent vomiting, or otherwise worsening symptoms Discharge Date/Time: 11/18/17 00:35
== END 2017-11-18 00:35 | disposition home or self-care (01) ==
LOC: ED 22:46
DX: B37.3 Candidiasis of vulva and vagina (principal)
CPT/HCPCS: 81001; 81003; 81025; 87086; 99283

== ENCOUNTER 2017-11-27 10:32 | Outpatient (CLI) | payer MEDICAID ==
[2017-11-27 19:12] LABS: BILIRUBIN,URINE NEGATIVE (NEGATIVE); GLUCOSE, URINE (UA) NEGATIVE (NEGATIVE); KETONES,URINE (UA) NEGATIVE (NEGATIVE); LEUKOCYTE ESTERASE, URINE SMALL (NEGATIVE); NITRITE,URINE NEGATIVE (NEGATIVE); OCCULT BLOOD,URINE TRACE-INTA (NEGATIVE); PROTEIN,URINE NEGATIVE (NEGATIVE); UROBILINOGEN,URINE 0.2 (NORMAL) E.U./dL (NORMAL)
[2017-11-27 19:17] LABS: CLARITY,URINE HAZY (CLEAR)
[2017-11-27 20:03] LABS: BACTERIA,URINE Many /HPF (None Seen); MUCUS,URINE Few Strands; SQUAMOUS EPITHELIAL CELL,UR FEW Squamous (<= Few); WBC CLUMPS,URINE PRESENT
== END 2017-11-27 10:33 | disposition home or self-care (01) ==
LOC: LAB.R 10:32
PROVIDERS: ATTEND Physician Assistant Medical
DX: R30.0 Dysuria (principal); Z91.89 Other specified personal risk factors, not elsewhere classified
CPT/HCPCS: 81001; 87086; 87491; 87591

== ENCOUNTER 2018-06-09 08:00 | Outpatient (CLI) | payer MEDICAID | END 2018-06-09 23:59 | disposition home or self-care (01) | LOC: LAB.R 08:00 | PROVIDERS: ATTEND Obstetrics & Gynecology | DX: Z20.2 Contact with and (suspected) exposure to infections with a predominantly sexual mode of transmission (principal) | CPT/HCPCS: 87480; 87510; 87660 ==

== ENCOUNTER 2018-07-14 10:19 | Outpatient (CLI) | payer MEDICAID ==
[2018-07-15 15:22] LABS: HEPATITIS B SURFACE ANTIGEN NON-REACTIVE (NON-REACTIVE)
[2018-07-15 15:51] LABS: HEPATITIS C ANTIBODY NON-REACTIVE (NON-REACTIVE)
[2018-07-15 17:21] LABS: HIV AG/AB 4TH GEN NON-REACTIVE (NON-REACTIVE)
[2018-07-16 11:57] LABS: HSV 1 IGG TYPE SPECIFIC AB >58.00 index; HSV 2 IGG TYPE SPECIFIC AB <0.90 index
== END 2018-07-14 10:20 | disposition home or self-care (01) ==
LOC: LAB 10:19
PROVIDERS: ATTEND Obstetrics & Gynecology
DX: Z20.2 Contact with and (suspected) exposure to infections with a predominantly sexual mode of transmission (principal)
CPT/HCPCS: 36415; 81599; 86592; 86695; 86696; 86803; 87340; 87389

== ENCOUNTER 2018-08-31 08:36 | Emergency (ER) | payer MEDICAID ==
[2018-08-31 09:15] LABS: BILIRUBIN,URINE NEGATIVE (NEGATIVE); GLUCOSE, URINE (UA) NEGATIVE (NEGATIVE); KETONES,URINE (UA) NEGATIVE (NEGATIVE); LEUKOCYTE ESTERASE, URINE SMALL (NEGATIVE); NITRITE,URINE POSITIVE (NEGATIVE); OCCULT BLOOD,URINE MODERATE (NEGATIVE); PROTEIN,URINE 30 mg/dL (NEGATIVE); UROBILINOGEN,URINE 0.2 (NORMAL) E.U./dL (NORMAL)
[2018-08-31 09:17] LABS: CLARITY,URINE SL. CLOUDY (CLEAR)
[2018-08-31 09:21] LABS: BACTERIA,URINE Few /HPF (None Seen); RBC,URINE TNTC /HPF (0-5); SQUAMOUS EPITHELIAL CELL,UR MOD Squamous (<= Few)
[2018-08-31] MEDS ORDERED: cefTRIAXone 1 GM VIAL IM STA (09:47)
[2018-08-31] MEDS ORDERED: LIDOCAINE 1% 2 ML VIAL MC ONE (09:47)
--- NOTE | 2018-08-31 09:49 | ED Physician Documentation ---
PD HPI FEMALE - Stated complaint Stated Complaint: FEMALE - Chief complaint Chief Complaint: Abd Pain - History obtained from History obtained from: Patient - History of Present Illness Timing - onset: How many days ago (3) Timing - duration: Days (3) Timing - details: Gradual onset, Still present Associated symptoms: Back pain, Dysuria, Urinary frequency Contributing factors: No: Similar symptoms before: Diagnosis (UTI and pyelo) Recently seen: Not recently seen - Additional information Additional information: Previously well 28-year-old female has had urinary urgency frequency and dysuria for the past 3 days. She has now developed some pain radiating up her sides associated with this. She has not had fever she has not had nausea. Review of Systems Constitutional: denies: Fever Eyes: denies: Decreased vision Ears: denies: Ear pain Nose: denies: Rhinorrhea / runny nose, Congestion Throat: denies: Sore throat Cardiac: denies: Chest pain / pressure, Palpitations Respiratory: denies: Dyspnea, Cough GI: reports: Abdominal Pain. 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: None : None Psych: Depression, Anxiety, Post traumatic stress disorder Musculoskeletal: None Derm: Herpes zoster - Past Surgical History Past Surgical History: No - Present Medications Home Medications: Ambulatory Orders Medication Instructions Recorded Confirmed Fluconazole [Diflucan] 150 mg PO ONCE #1 tablet 11/18/17 Sulfamethoxazole/Trimethoprim 1 each PO BID #10 tablet 08/31/18 [Sulfamethoxazole-Tmp Ds Tablet] - Allergies Allergies/Adverse Reactions: Allergies Allergy/AdvReac Type Severity Reaction Status Date / Time No Known Drug Allergies Allergy Verified 12/08/16 11:12 - Social History Does the pt smoke?: No Smoking Status: Never smoker Does the pt drink ETOH?: Yes Does the pt have substance abuse?: No - Immunizations Immunizations are current?: Yes - POLST Patient has POLST: No PD ED PE NORMAL - Vitals Vital signs reviewed: Yes (hypertensive ) - General General: Alert and oriented X 3, No acute distress, Well developed/nourished - HEENT HEENT: Atraumatic, PERRL, EOMI - Neck Neck: Supple, no meningeal sign, No bony TTP - Cardiac Cardiac: RRR, No murmur - Respiratory Respiratory: No respiratory distress, Clear bilaterally - Abdomen Abdomen: Soft, Other (There is mild tenderness to the abdomen that is not reproducible. There is no pain to bimanual palpation of either kidney. ) - Back Back: No CVA TTP, No spinal TTP - Derm Derm: Normal color, Warm and dry, No rash - Extremities Extremities: No deformity, No edema - Neuro Neuro: Alert and oriented X 3, nursing resident 2-12 intact, No motor deficit, No sensory deficit, Normal speech Eye Opening: Spontaneous Motor: Obeys Commands Verbal: Oriented GCS Score: 15 - Psych Psych: Normal mood, Normal affect Results - Vitals Vitals: Vital Signs - 24 hr 08/31/18 08:53 Temperature 37.0 C Heart Rate 81 Respiratory 16 Rate Blood Pressure 117/88 H O2 Saturation 97 Oxygen O2 Source Room air - Labs Labs: Laboratory Tests 08/31/18 08:45 Urine Color YELLOW Urine Clarity SL. CLOUDY Urine pH 7.0 Ur Specific [place] 1.020 Urine Protein 30 H Urine Glucose (UA) NEGATIVE Urine Ketones NEGATIVE Urine Occult Blood MODERATE H Urine Nitrite POSITIVE H Urine Bilirubin NEGATIVE Urine Urobilinogen 0.2 (NORMAL) Ur Leukocyte Esterase SMALL H Urine RBC TNTC H Urine WBC 11-25 H Ur Squamous Epith Cells MOD Squamous H Urine Bacteria Few Ur Microscopic Review INDICATED Urine Culture Comments NOT INDICATED PD MEDICAL DECISION MAKING - ED course Complexity details: considered differential, d/w patient ED course: 28-year-old female with 4 days of urinary urgency frequency and dysuria has urinary tract infection. She has some pain to her sides but this is not over her kidneys. She is administered Rocephin [address] IM [address] will [address] her on some . Departure - Departure Disposition: Home, Self Care Clinical Impression: Urinary tract infection Qualifiers: Urinary tract infection type: acute cystitis Hematuria presence: with hematuria Qualified Code(s): N30.01 - Acute cystitis with hematuria Condition: Stable Instructions: ED UTI Cystitis Female Follow-Up: Jay Jay Wheatley PA-C [Primary Care Provider] - Prescriptions: Sulfamethoxazole/Trimethoprim [Sulfamethoxazole-Tmp Ds Tablet] 1 each PO BID #10 tablet Forms: Activity restrictions
[2018-08-31 10:25] VITALS: BP 102/65
== END 2018-08-31 10:27 | disposition home or self-care (01) ==
LOC: ED 08:36
DX: N30.01 Acute cystitis with hematuria (principal); Z86.19 Personal history of other infectious and parasitic diseases
CPT/HCPCS: 81001; 81003; 87086; 96372; 99283

== ENCOUNTER 2018-10-31 10:00 | Outpatient (CLI) | payer SELFPAY | END 2018-10-31 23:59 | disposition home or self-care (01) | LOC: LAB.R 10:00 | PROVIDERS: ATTEND Family Medicine | DX: N76.0 Acute vaginitis (principal) | CPT/HCPCS: 81599; 87480; 87510; 87660; 87661; 87801 ==

== ENCOUNTER 2018-11-29 09:53 | Emergency (ER) | payer MEDICAID ==
[2018-11-29 10:06] VITALS: BP 112/66
--- NOTE | 2018-11-29 12:11 | ED Physician Documentation ---
History of Present Illness - Stated complaint Stated Complaint: SORE THROAT - Chief complaint Chief Complaint: Heent - History obtained from History obtained from: Patient - Additonal information Additional information: Patient is a 28-year-old female presenting with sore throat over the past several days. Patient reports swollen tonsils that are red and with white material on them. Patient reports difficulty with swallowing because of pain, as well as swollen lymph nodes. Patient does report dry cough but no difficulty breathing. Patient denies other nasal congestion, rhinorrhea, ear pain. Patient does report elevated temperature at home, as well as chills. No other improving or worsening factors noted. Review of Systems Constitutional: reports: Fever, Chills Throat: reports: Sore throat, Swollen tonsils Respiratory: reports: Cough. 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: None : None Psych: Depression, Anxiety, Post traumatic stress disorder Musculoskeletal: None Derm: Herpes zoster - Past Surgical History Past Surgical History: No - Present Medications Home Medications: Ambulatory Orders Medication Instructions Recorded Confirmed Fluconazole [Diflucan] 150 mg PO ONCE #1 tablet 11/18/17 Sulfamethoxazole/Trimethoprim 1 each PO BID #10 tablet 08/31/18 [Sulfamethoxazole-Tmp Ds Tablet] Penicillin V Potassium 500 mg PO BID 10 Days tablet 11/29/18 - Allergies Allergies/Adverse Reactions: Allergies Allergy/AdvReac Type Severity Reaction Status Date / Time No Known Drug Allergies Allergy Verified 12/08/16 11:12 - Social History Does the pt smoke?: No Smoking Status: Never smoker Does the pt drink ETOH?: Yes Does the pt have substance abuse?: No - Immunizations Immunizations are current?: Yes - POLST Patient has POLST: No PD ED PE NORMAL - Vitals Vital signs reviewed: Yes - General General: Alert and oriented X 3, No acute distress, Well developed/nourished - HEENT HEENT: Atraumatic, Moist mucous membranes. No: Pharynx benign ([place] swelling of tonsils bilaterally with erythema and exudate present) - Neck Neck: Supple, no meningeal sign - Cardiac Cardiac: RRR, No murmur - Respiratory Respiratory: No respiratory distress, Clear bilaterally - Derm Derm: Normal color, Warm and dry, No rash - Extremities Extremities: No deformity, No tenderness to palpate - Neuro Neuro: Alert and oriented X 3, No motor deficit, No sensory deficit - Psych Psych: Normal mood, Normal affect Results - Vitals Vitals: Vital Signs - 24 hr 11/29/18 10:04 Temperature 36 C L Heart Rate 88 Respiratory 18 Rate Blood Pressure 112/66 O2 Saturation 98 Oxygen O2 Source Room air - Labs Labs: Laboratory Tests 11/29/18 10:07 Group A Strep Rapid Negative PD MEDICAL DECISION MAKING - ED course Complexity details: reviewed results, considered differential, d/w patient ED course: Although rapid strep test is negative, patient's clinical symptoms and Physical exam are indicative of tonsillitis, possibly strep or otherwise. Do not find evidence of uvulitis, uvular deviation, peritonsillar abscess or concern for retropharyngeal abscess. Also low suspicion for otitis issues, mastoiditis, sinusitis, pneumonia or other systemic illness. Remainder physical exam is relatively unremarkable. Discussed possible etiologies of symptoms with patient and agreed to starting antibiotics. Also discussed other supportive cares, return precautions, and follow-up. Patient voiced understanding and is comfortable with discharge plan. Departure - Departure Disposition: 01 Home, Self Care Clinical Impression: Tonsillitis Condition: Good Instructions: ED Tonsillitis Follow-Up: Jay Jay Wheatley PA-C [Primary Care Provider] - Within 3 Days Prescriptions: Penicillin V Potassium 500 mg PO BID 10 Days tablet Comments: Please take antibiotics as prescribed for tonsil infection. Recommend taking antibiotics with small amount of food to avoid upset stomach. Recommend ibuprofen/Tylenol as well for fever and pain control. May also try Listerine or salt water gargles. Follow-up with primary care physician in next 2 to 3 days and return to ED sooner if experience worsening symptoms or have other concerns.
== END 2018-11-29 12:37 | disposition home or self-care (01) ==
LOC: ED 09:53
DX: J03.90 Acute tonsillitis, unspecified (principal)
CPT/HCPCS: 87070; 87430; 99283; 99284

== ENCOUNTER 2019-01-01 11:23 | Outpatient (CLI) | payer MEDICAID ==
[2019-01-01 20:50] LABS: TRICHOMONAS VAGINALIS DNA NEGATIVE (NEGATIVE)
== END 2019-01-01 23:59 | disposition home or self-care (01) ==
LOC: LAB.R 11:23
PROVIDERS: ATTEND Physician Assistant Medical
DX: Z20.2 Contact with and (suspected) exposure to infections with a predominantly sexual mode of transmission (principal)
CPT/HCPCS: 87491; 87591; 87661

== ENCOUNTER 2019-02-21 22:07 | Emergency (ER) | payer OTHER ==
[2019-02-21 22:17] VITALS: BP 124/71
[2019-02-21] MEDS ORDERED: CHERRY SYRUP 10 ML UDC PO ONE (22:38)
[2019-02-21] MEDS ORDERED: PENICILLIN VK 250 MG TABLET PO STA (22:38)
[2019-02-21] MEDS ORDERED: DEXAMETHASONE 10 MG/ML VIAL PO STA (22:38)
[2019-02-21] MEDS ORDERED: IBUPROFEN 800 MG TABLET PO STA (22:38)
--- NOTE | 2019-02-21 22:40 | ED Physician Documentation ---
PD HPI HEENT - Stated complaint Stated Complaint: SORE THROAT, LOWER BACK AND NECK PX - Chief complaint Chief Complaint: Heent - History obtained from History obtained from: Patient - History of Present Illness Timing - onset: How many weeks ago (1) Timing - duration: Weeks (1) Timing - details: Gradual onset Pain level max: 6 Pain level now: 5 Location: Throat Improves: Nothing Worsens: Swalllowing Associated symptoms: Fever. No: Congestion, Rhinorrhea, Trismus Recently seen: Not recently seen - Additional information Additional information: Patient states that her girlfriend was recently treated for strep pharyngitis. She has a sore throat, neck and back pain. No urinary symptoms. Denies any possibility of . Worse with swallowing, better with rest. Has not taken anything for this. 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 : None Psych: Depression, Anxiety, Post traumatic stress disorder Musculoskeletal: None Derm: Herpes zoster - Past Surgical History Past Surgical History: No - Present Medications Home Medications: Ambulatory Orders Medication Instructions Recorded Confirmed Fluconazole [Diflucan] 150 mg PO ONCE #1 tablet 11/18/17 Sulfamethoxazole/Trimethoprim 1 each PO BID #10 tablet 08/31/18 [Sulfamethoxazole-Tmp Ds Tablet] Penicillin V Potassium 500 mg PO BID 10 Days tablet 11/29/18 Ibuprofen [Motrin] 800 mg PO Q8H PRN #30 tablet 02/21/19 Penicillin V Potassium 500 mg PO Q6HR #40 tablet 02/21/19 - Allergies Allergies/Adverse Reactions: Allergies Allergy/AdvReac Type Severity Reaction Status Date / Time No Known Drug Allergies Allergy Verified 12/08/16 11:12 - Social History Does the pt smoke?: No Smoking Status: Never smoker Does the pt drink ETOH?: Yes Does the pt have substance abuse?: No - Immunizations Immunizations are current?: Yes - POLST Patient has POLST: No PD ED PE NORMAL - Vitals Vital signs reviewed: Yes - General General: Alert and oriented X 3, No acute distress, Well developed/nourished - HEENT HEENT: PERRL, Moist mucous membranes, Other (Posterior oropharyngeal erythema with tonsillar exudates. Normal phonation. No trismus. Uvula midline.) - Neck Neck: Supple, no meningeal sign, Other (Shotty anterior lymphadenopathy) - Cardiac Cardiac: RRR, Strong equal pulses - Respiratory Respiratory: No respiratory distress, Clear bilaterally - Abdomen Abdomen: Soft, Non tender, Non distended - Derm Derm: Warm and dry, No rash - Extremities Extremities: No edema - Neuro Neuro: Alert and oriented X 3 - Psych Psych: Normal mood, Normal affect Results - Vitals Vitals: Vital Signs - 24 hr 02/21/19 22:13 Temperature 36.8 C Heart Rate 67 Respiratory 15 Rate Blood Pressure 124/71 O2 Saturation 98 Oxygen O2 Source Room air - Labs Labs: Laboratory Tests 02/21/19 22:23 Group A Strep Rapid POSITIVE H PD MEDICAL DECISION MAKING - ED course Complexity details: reviewed results, considered differential (No retropharyngeal or peritonsillar abscess.), d/w patient ED course: 29-year-old female with strep pharyngitis. Will place on antibiotics. Given dexamethasone here. Will place on NSAIDs as well. Patient counseled regarding signs and symptoms for which I believe and urgent re-evaluation would be necessary. Patient with good understanding of and agreement to plan and is comfortable going home at this time This document was made in part using voice recognition software. While efforts are made to proofread this document, sound alike and grammatical errors may occur. Departure - Departure Disposition: 01 Home, Self Care Clinical Impression: Strep pharyngitis Condition: Good Instructions: ED Strep Pharyngitis Conf Follow-Up: Jay Jay Wheatley PA-C [Primary Care Provider] - Within 1 week Prescriptions: Penicillin V Potassium 500 mg PO Q6HR #40 tablet Ibuprofen [Motrin] 800 mg PO Q8H PRN #30 tablet PRN Reason: PAIN &/OR FEVER Comments: Take all antibiotics until gone. Return if you worsen. Drink plenty of fluids and rest. Discharge Date/Time: 02/21/19 23:11
== END 2019-02-21 23:11 | disposition home or self-care (01) ==
LOC: ED 22:07
DX: J02.0 Streptococcal pharyngitis (principal)
CPT/HCPCS: 87430; 99283; 99284; A9270

== ENCOUNTER 2019-03-17 14:12 | Emergency (ER) | payer OTHER ==
[2019-03-17 14:19] VITALS: BP 122/67
[2019-03-17] MEDS ORDERED: AMOX/CLAV 875 MG/125 MG TABLET PO STA (14:45)
[2019-03-17] MEDS ORDERED: TETANUS/DIPHTHERIA/PERTUSSIS 0.5 ML SYRINGE IM ONE (14:47)
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
== END 2019-03-17 15:09 | disposition home or self-care (01) ==
LOC: ED 14:12
DX: S01.25XA Open bite of nose, initial encounter (principal); Y04.1XXA Assault by human bite, initial encounter; Y93.F9 Activity, other caregiving; Y99.0 Civilian activity done for income or pay; Z23 Encounter for immunization
CPT/HCPCS: 90471; 90715; 99282; 99283; A9270

== ENCOUNTER 2019-04-20 20:03 | Emergency (ER) | payer OTHER ==
[2019-04-20 20:11] VITALS: BP 114/71
--- NOTE | 2019-04-20 22:22 | ED Physician Documentation ---
History of Present Illness - Stated complaint Stated Complaint: FLU SX - Chief complaint Chief Complaint: General - History obtained from History obtained from: Patient - History of Present Illness Timing: Yesterday Pain level max: 4 Pain level now: 3 - Additonal information Additional information: 29-year-old female states that she started getting sick yesterday, rhinorrhea, congestion, cough. T-max 100.7 today. Came in for evaluation for possible influenza. 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 Worse with movement. Better with rest Review of Systems Constitutional: reports: Fever (100.7). 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 Psych: Depression, Anxiety, Post traumatic stress disorder Musculoskeletal: None Derm: Herpes zoster - Past Surgical History Past Surgical History: No - Present Medications Home Medications: Ambulatory Orders Medication Instructions Recorded Confirmed Fluconazole [Diflucan] 150 mg PO ONCE #1 tablet 11/18/17 Sulfamethoxazole/Trimethoprim 1 each PO BID #10 tablet 08/31/18 [Sulfamethoxazole-Tmp Ds Tablet] Penicillin V Potassium 500 mg PO BID 10 Days tablet 11/29/18 Ibuprofen [Motrin] 800 mg PO Q8H PRN #30 tablet 02/21/19 Penicillin V Potassium 500 mg PO Q6HR #40 tablet 02/21/19 Amox/Clav 875/125 [Augmentin] 1 each PO Q12H #20 tablet 03/17/19 - Allergies Allergies/Adverse Reactions: Allergies Allergy/AdvReac Type Severity Reaction Status Date / Time No Known Drug Allergies Allergy Verified 04/20/19 20:11 - Social History Does the pt smoke?: No Smoking Status: Never smoker Does the pt drink ETOH?: Yes Does the pt have substance abuse?: No - Immunizations Immunizations are current?: Yes - POLST Patient has POLST: No PD ED PE NORMAL - Vitals Vital signs reviewed: Yes - General General: Alert and oriented X 3, No acute distress, Well developed/nourished - HEENT HEENT: PERRL, Ears normal, Moist mucous membranes, Pharynx benign - Neck Neck: Supple, no meningeal sign, No adenopathy - Cardiac Cardiac: RRR, Strong equal pulses - Respiratory Respiratory: No respiratory distress, Clear bilaterally - Abdomen Abdomen: Soft, Non tender, Non distended - Derm Derm: Warm and dry, No rash - Neuro Neuro: Alert and oriented X 3 - Psych Psych: Normal mood, Normal affect Results - Vitals Vitals: Vital Signs - 24 hr 04/20/19 20:09 Temperature 98.6 C H Heart Rate 78 Respiratory 16 Rate Blood Pressure 114/71 O2 Saturation 98 Oxygen O2 Source Room air - Labs Labs: Laboratory Tests 04/20/19 20:12 Influenza A (Rapid) Negative Influenza B (Rapid) Negative PD MEDICAL DECISION MAKING - ED course Complexity details: reviewed results, re-evaluated patient, considered differential, d/w patient ED course: Patient is well-appearing, nontoxic. Afebrile. No hypoxia. Influenza swabs are negative. We will continue supportive care and have her follow-up with her doctor. No evidence of pneumonia or sepsis. Patient counseled regarding signs and symptoms for which I believe and urgent re-evaluation would be necessary. Patient with good understanding of and agreement to plan and is comfortable going home at this time This document was made in part using voice recognition software. While efforts are made to proofread this document, sound alike and grammatical errors may occur. Departure - Departure Disposition: 01 Home, Self Care Clinical Impression: Viral URI Condition: Good Instructions: ED URI Viral Follow-Up: Jay Jay Wheatley PA-C [Primary Care Provider] - Within 1 week Comments: Return if you worsen. Drink plenty of fluids and rest. Your influenza test was negative today. Forms: Activity restrictions Discharge Date/Time: 04/20/19 22:39
== END 2019-04-20 22:39 | disposition home or self-care (01) ==
LOC: ED 20:03
DX: J06.9 Acute upper respiratory infection, unspecified (principal)
CPT/HCPCS: 87275; 87276; 99282; 99283

== ENCOUNTER 2019-06-10 10:30 | Outpatient (CLI) | payer SELFPAY ==
[2019-06-10 18:36] LABS: BILIRUBIN,URINE NEGATIVE (NEGATIVE); GLUCOSE, URINE (UA) NEGATIVE (NEGATIVE); KETONES,URINE (UA) NEGATIVE (NEGATIVE); LEUKOCYTE ESTERASE, URINE NEGATIVE (NEGATIVE); NITRITE,URINE POSITIVE (NEGATIVE); OCCULT BLOOD,URINE NEGATIVE (NEGATIVE); PH,URINE 6.5 PH (5.0-7.5); PROTEIN,URINE NEGATIVE (NEGATIVE); UROBILINOGEN,URINE 0.2 (NORMAL) E.U./dL (NORMAL)
[2019-06-10 18:50] LABS: BACTERIA,URINE Many /HPF (None Seen); CLARITY,URINE HAZY (CLEAR); RBC,URINE 0-5 /HPF (0-5); SQUAMOUS EPITHELIAL CELL,UR FEW Squamous (<= Few)
== END 2019-06-10 23:59 | disposition home or self-care (01) ==
LOC: LAB.R 10:30
PROVIDERS: ATTEND Physician Assistant Medical
DX: R82.998 Other abnormal findings in urine (principal)
CPT/HCPCS: 81001; 87086; 87181

== ENCOUNTER 2021-01-09 08:05 | Emergency (ER) | payer OTHER ==
[2021-01-09 08:18] VITALS: BP 119/65
--- NOTE | 2021-01-09 08:35 | ED Physician Documentation ---
History of Present Illness - Stated complaint Stated Complaint: CHEST DISCOMFORT - Chief complaint Chief Complaint: Trauma Ch/Bk - History obtained from History obtained from: Patient - Additonal information Additional information: Pt comes to ED at request of her employer, after falling between a boat and a dock this morning, and catching her full weight with her abducted, outstretched arms. Pt c/o pain mainly in the L anterior shoulder and just L of sternum. No SOB. No rib pain. No pain in the rest of her arm. No other injuries. Pt was helped out of her predicament by coworkers, and went back to work. However, she felt increasing discomfort, so she was told to come here. Review of Systems Ten Systems: 10 systems reviewed and negative Constitutional: reports: Reviewed and negative Eyes: reports: Reviewed and negative Ears: reports: Reviewed and negative Nose: reports: Reviewed and negative Throat: reports: Reviewed and negative Cardiac: reports: Reviewed and negative Respiratory: reports: Reviewed and negative GI: reports: Reviewed and negative : reports: Reviewed and negative Skin: reports: Reviewed and negative Musculoskeletal: reports: Joint pain Neurologic: reports: Reviewed and negative Psychiatric: reports: Reviewed and negative Endocrine: reports: Reviewed and negative Immunocompromised: reports: Reviewed and negative PD PAST MEDICAL HISTORY - Past Medical History Past Medical History: No Cardiovascular: None Respiratory: None Neuro: None Endocrine/Autoimmune: None GI: None 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 HEENT: None Psych: Depression, Anxiety, Post traumatic stress disorder Musculoskeletal: None Derm: Herpes zoster - Past Surgical History Past Surgical History: No - Present Medications Home Medications: Ambulatory Orders Medication Instructions Recorded Confirmed No Known Home Medications 01/09/21 01/09/21 - Allergies Allergies/Adverse Reactions: Allergies Allergy/AdvReac Type Severity Reaction Status Date / Time No Known Drug Allergies Allergy Verified 01/09/21 08:09 - Social History Does the pt smoke?: No Smoking Status: Never smoker Does the pt drink ETOH?: Yes Does the pt have substance abuse?: Yes Substance Use and Type: Marijuana - Immunizations Immunizations are current?: Yes - POLST Patient has POLST: No PD ED PE NORMAL - Vitals Vital signs reviewed: Yes - General General: Alert and oriented X 3, No acute distress, Well developed/nourished - HEENT HEENT: Atraumatic, PERRL, EOMI, Moist mucous membranes - Neck Neck: Supple, no meningeal sign, No bony TTP - Cardiac Cardiac: RRR, No murmur, Strong equal pulses - Respiratory Respiratory: No respiratory distress, Clear bilaterally - Abdomen Abdomen: Soft, Non tender, Non distended - Back Back: No CVA TTP, No spinal TTP - Derm Derm: Normal color, Warm and dry, No rash - Extremities Extremities: No deformity, No edema, Other (Mild-moderate tenderness L anterior shoulder, without deformity. No crepitus. ROM mildly limited.) - Neuro Neuro: Alert and oriented X 3 - Psych Psych: Normal mood, Normal affect PD ED PE EXPANDED - Free text exam Free text exam: L CW tenderness, parasternally. No deformity, contusion, or edema. No crepitus. Results - Vitals Vitals: Oxygen O2 Source Room air PD MEDICAL DECISION MAKING - ED course Complexity details: reviewed results, re-evaluated patient, considered marvin sanders, d/w patient ED course: Pt was overall well-appearing, and I suspected soft tissue strains. We have discussed symptomatic management at home. EKG done in triage per chest pain CC protocol, and unremarkable. We have discussed the usual indications for return. Departure - Departure Disposition: Home, Self Care Clinical Impression: Left shoulder strain Qualifiers: Encounter type: initial encounter Qualified Code(s): S46.912A - Strain of unspecified muscle, fascia and tendon at shoulder and upper arm level, left arm, initial encounter Strain of chest wall Qualifiers: Encounter type: initial encounter Qualified Code(s): S29.011A - Strain of muscle and tendon of front wall of thorax, initial encounter Condition: Stable Instructions: ED Sprain Shoulder, ED Strain Muscle Ext, ED Strain Chest Wall Ch Follow-Up: Romain Matthew MD [Credentialed Staff Provider] - Comments: There is no evidence of a broken bone at this time. Your injury and physical exam findings are indicative of strains of the muscles that involve your chest wall and the front of your shoulder. The treatment for this is ice, heat, anti- inflammatories, and rest, along with range of motion exercises as we have discussed. You should do light duty at work until your shoulder is feeling better, after which you may go back to your regular duties. Forms: Activity restrictions Discharge Date/Time: 01/09/21 08:47
== END 2021-01-09 08:47 | disposition home or self-care (01) ==
LOC: ED 08:05
DX: S46.912A Strain of unspecified muscle, fascia and tendon at shoulder and upper arm level, left arm, initial encounter (principal); S29.011A Strain of muscle and tendon of front wall of thorax, initial encounter; W23.1XXA Caught, crushed, jammed, or pinched between stationary objects, initial encounter; Y99.0 Civilian activity done for income or pay
CPT/HCPCS: 93005; 99282; 99283

== ENCOUNTER 2021-06-16 08:53 | Outpatient (CLI) | payer OTHER ==
[2021-06-16 12:19] LABS: BASOPHILS % (AUTO) 0.8 %; EOSINOPHILS # (AUTO) 0.1 10^3/uL (0.0-0.7); EOSINOPHILS % (AUTO) 1.1 %; HCT - HEMATOCRIT 40.1 % (37.0-47.0); HGB - HEMOGLOBIN 13.9 g/dL (12.0-16.0); LYMPHOCYTES # (AUTO) 2.1 10^3/uL (1.5-3.5); LYMPHOCYTES % (AUTO) 44.2 %; MEAN CORPUSCULAR HEMOGLOBIN 30.9 pg (27.0-31.0); MEAN CORPUSCULAR HGB CONC 34.7 g/dL (32.0-36.0); MEAN CORPUSCULAR VOLUME 89.1 fL (81.0-99.0); MEAN PLATELET VOLUME 9.2 fL (7.9-10.8); MONOCYTES # (AUTO) 0.6 10^3/uL (0.0-1.0); MONOCYTES % (AUTO) 13.6 %; NEUTROPHILS # (AUTO) 1.9 10^3/uL (1.5-6.6); NEUTROPHILS % (AUTO) 40.1 %; PLT - PLATELET COUNT 253 10^3/uL (130-450); RED CELL DISTRIBUTION WIDTH 12.1 % (12.0-15.0); WHITE BLOOD COUNT 4.7 x10^3/uL (4.8-10.8)
[2021-06-16 12:49] LABS: ALBUMIN 4.1 g/dL (3.2-5.5); ALBUMIN/GLOBULIN RATIO 1.3 (1.0-2.2); ALKALINE PHOSPHATASE 40 IU/L (42-121); ALT ALANINE AMINOTRANSFERASE 14 IU/L (10-60); AST ASPARTATE AMINOTRANSFERASE 13 IU/L (10-42); BILIRUBIN,TOTAL 1.1 mg/dL (0.2-1.0); BUN - BLOOD UREA NITROGEN 15 mg/dL (6-20); CALCIUM 8.8 mg/dL (8.5-10.3); CARBON DIOXIDE - CO2 23 mmol/L (21-32); CHLORIDE 104 mmol/L (101-111); CHOL/HDL RATIO 2.2 (<4.4); CHOLESTEROL 129 mg/dL; CREATININE 0.5 mg/dL (0.4-1.0); GFR - MDRD 146 (>89); GLUCOSE 95 mg/dL (70-100); HDL CHOLESTEROL 59 mg/dL; SODIUM 135 mmol/L (135-145); TOTAL PROTEIN 7.3 g/dL (6.7-8.2); TRIGLYCERIDES 27 mg/dL
[2021-06-16 12:56] LABS: THYROID STIMULATING HORMONE 1.75 uIU/mL (0.34-5.60)
[2021-06-16 13:27] LABS: BILIRUBIN,URINE NEGATIVE (NEGATIVE); ESTIMATED AVERAGE GLUCOSE 88 mg/dL (70-100); GLUCOSE, URINE (UA) NEGATIVE (NEGATIVE); HEMOGLOBIN A1c% 4.7 % (4.27-6.07); KETONES,URINE (UA) NEGATIVE (NEGATIVE); LEUKOCYTE ESTERASE, URINE TRACE (NEGATIVE); NITRITE,URINE NEGATIVE (NEGATIVE); OCCULT BLOOD,URINE SMALL (NEGATIVE); PROTEIN,URINE NEGATIVE (NEGATIVE); UROBILINOGEN,URINE 0.2 (NORMAL) E.U./dL (NORMAL)
[2021-06-16 14:02] LABS: BACTERIA,URINE Moderate /HPF (None Seen); CLARITY,URINE CLOUDY (CLEAR); SQUAMOUS EPITHELIAL CELL,UR MANY Squamous (<= Few)
== END 2021-06-16 08:54 | disposition home or self-care (01) ==
LOC: LAB.N 08:53
PROVIDERS: ATTEND Nurse Practitioner
DX: Z00.00 Encounter for general adult medical examination without abnormal findings (principal); E66.3 Overweight; Z13.220 Encounter for screening for lipoid disorders; Z13.1 Encounter for screening for diabetes mellitus; Z68.28 Body mass index [BMI] 28.0-28.9, adult; Z13.21 Encounter for screening for nutritional disorder
CPT/HCPCS: 36415; 80053; 80061; 81001; 82306; 83036; 83721; 84443; 85025; 87086

== ENCOUNTER 2021-10-31 22:26 | Outpatient (CLI) | payer MEDICAID ==
--- NOTE | 2021-11-01 17:26 | Ultrasound Report ---
PROCEDURE: Head or Neck Soft Tissue INDICATIONS: NONTOXIC GOITER TECHNIQUE: Real-time scanning was performed of the thyroid gland, with image documentation. COMPARISON: None FINDINGS: Right: Thyroid lobe measures 5.3 x 1.3 x 1.8 cm, and is homogeneous in echotexture. Left: Thyroid lobe measures 5.3 x 0.9 x 1.3 cm, and is homogenous in echotexture. Isthmus: Size mm thick. Scattered visualized lymph nodes are present. They demonstrate fatty hilum and are not enlarged by pa thologic size criteria. IMPRESSION: No focal thyroid lesions. Subcentimeter neck lymph nodes. Reviewed by: Radha Ng MD on 11/01/2021 5:25 PM PDT Approved by: Radha Ng MD on 11/01/2021 5:25 PM PDT Station ID: [id number]
== END 2021-10-31 22:27 | disposition home or self-care (01) ==
LOC: DI 22:26
PROVIDERS: ATTEND Nurse Practitioner Family
DX: E04.9 Nontoxic goiter, unspecified (principal)

== ENCOUNTER 2022-12-24 18:14 | Emergency (ER) | payer MEDICAID, OTHER ==
[2022-12-24 18:21] VITALS: BP 116/55; O2SAT 98
--- OUTSIDE RECORDS SUMMARY | 2022-12-24 18:41 | EXTERNAL MEDICAL SUMMARY RPT | Continuity of Care Document ---
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 Name Role Phone Alyssa Asher Unavailable Unavailable Allergies and Intolerances date description facility reaction severity (no date) [facility] s [facility] Medications date description facility 2022-09-27 00:00 Ibuprofen [facility] 2022-09-27 00[facility] description facility 2022-09-27 00:00 Tendinitis of right wrist [facility] Procedures date description facility 2022-10-26 00:00 X-ray of soft tissue of neck [facility] Results/Labs test date facility value unit notes Social History date description facility 2022-09-27 00:00 Tobacco smoking consumption [facility] (finding) [facility] 2022-10-26 00:00 Tobacco smoking consumption [facility] (finding) [facility] Vital Signs date measurement value units 2022-09-27 00:00 BMI 28.1 kg/m2 2022-09-27 00:00 BP_diastolic 74 mmHg 2022-09-27 00:00 BP_systolic 114 mmHg 2022-09-27 00:00 heart_rate 66 /min 2022-09-27 00:00 height_metric 170.18 cm 2022-09-27 00:00 height_standard 67 in 2022-09-27 00:00 o2_saturation 96 % 2022-09-27 00:00 respiration_rate 15 /min 2022-09-27 00:00 temperature_metric 36.11 C 2022-09-27 00:00 temperature_standard 97 F 2022-09-27 00:00 weight_metric 81.64 kg 2022-09-27 00:00 weight_standard 179.99 lb 2022-10-26 00:00 BMI 28.1 kg/m2 2022-10-26 00:00 BP_diastolic 62 mmHg 2022-10-26 00:00 BP_systolic 118 mmHg 2022-10-26 00:00 heart_rate 93 /min 2022-10-26 00:00 height_metric 170.18 cm 2022-10-26 00:00 height_standard 67 in 2022-10-26 00:00 o2_saturation 100 % 2022-10-26 00:00 respiration_rate 16 /min 2022-10-26 00:00 temperature_metric 36.89 C 2022-10-26 00:00 temperature_standard 98.4 F 2022-10-26 00:00 weight_metric 81.64 kg 2022-10-26 00:00 weight_standard 179.99 lb
[2022-12-24] MEDS ORDERED: LIDOCAINE-MPF 1% 5 ML VIAL SUBQ STA (19:29)
--- NOTE | 2022-12-24 20:56 | ED Physician Documentation ---
History of Present Illness - Stated complaint Stated Complaint: LT HAND LAC - Chief complaint Chief Complaint: Laceration - History obtained from History obtained from: Patient - History of Present Illness Timing: Today Pain level max: 4 Pain level now: 4 - Additonal information Additional information: 32 year old, female, right, handed, presents to the emergency department with a laceration to the left palm. She states that she was making dinner when she accidentally cut her left palm. Tetanus shot is up-to-date. No numbness or tingling. Better with pressure, worse with use. No active bleeding currently. 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 HEENT: None Psych: Depression, Anxiety, Post traumatic stress disorder Musculoskeletal: None Derm: Herpes zoster - Past Surgical History Past Surgical History: No - Present Medications Home Medications: Ambulatory Orders Medication Instructions Recorded Confirmed No Known Home Medications 01/09/21 12/24/22 - Allergies Allergies/Adverse Reactions: Allergies Allergy/AdvReac Type Severity Reaction Status Date / Time Penicillins Allergy Hives Verified 12/24/22 18:19 - Social History Does the pt smoke?: No Smoking Status: Never smoker Does the pt drink ETOH?: Yes Does the pt have substance abuse?: Yes - Immunizations Immunizations are current?: Yes - POLST Patient has POLST: No PD ED PE NORMAL - Vitals Vital signs reviewed: Yes - General General: Alert and oriented X 3, No acute distress - Extremities Extremities: Other (L hand - 2cm laceration proximal to the 4th/5th MCP joints, palmar. all tendons intact. tested vs resistance. NVI) - Neuro Neuro: Alert and oriented X 3 Results - Vitals Vitals: Vital Signs - 24 hr 12/24/22 18:20 Temperature 36.5 C Heart Rate 62 Respiratory 16 Rate Blood Pressure 116/55 L O2 Saturation 98 Oxygen O2 Source Room air Procedures - Laceration (location) L hand Length in cm: 2 Wound type: Linear, Into subcut fat, Clean Neurovascular status: Sensory intact, Motor intact, Vascular intact Tendon involvement: Tendon intact Anesthesia: Lidocaine 1% Wound preparation: Irrigated copiously NS, Wound explored, To the base Skin layer closure: Nylon, Interrupted, Size #-0 - enter number (4) Other: Patient tolerated well, No complications, Neurovascular intact, Dressing applied, Tetanus UTD PD Medical Decision Making - ED course Complexity details: considered differential, d/w patient ED course: Laceration repaired, tolerated well. No tendon injury. No neurological or vascular injury. Tetanus shot is up-to-date. Wound care instructions given at bedside. Patient counseled regarding signs and symptoms for which I believe and urgent re-evaluation would be necessary. Patient with good understanding of and agreement to plan and is comfortable going home at this time. This document was made in part using voice recognition software. While efforts are made to proofr ead this document, sound alike and grammatical errors may occur. Departure - Departure Disposition: 01 Home, Self Care Clinical Impression: Hand laceration Qualifiers: Encounter type: initial encounter Foreign body presence: without foreign body Laterality: left Qualified Code(s): S61.412A - Laceration without foreign body of left hand, initial encounter Condition: Good Instructions: ED Laceration Hand Follow-Up: your,doctor in 10-14 days for suture removal [Other] Comments: The sutures should be removed in 10 to 14 days. Please follow-up with your doctor for further care. Please return if you worsen. Please return if you notice redness, swelling or drainage from the wound. Forms: PCP List, Activity restrictions Discharge Date/Time: 12/24/22 21:05
== END 2022-12-24 21:05 | disposition home or self-care (01) ==
LOC: ED 18:14
DX: S61.412A Laceration without foreign body of left hand, initial encounter (principal); W45.8XXA Other foreign body or object entering through skin, initial encounter; Y93.G1 Activity, food preparation and clean up
CPT/HCPCS: 12001; 99282

== ENCOUNTER 2023-05-05 12:08 | Emergency (ER) | payer OTHER ==
[2023-05-05 12:21] VITALS: BP 110/74; O2SAT 100
[2023-05-05] MEDS ORDERED: CHERRY SYRUP 10 ML UDC PO ONE (13:44)
[2023-05-05] MEDS ORDERED: DEXAMETHASONE 10 MG/ML VIAL PO STA (13:44)
--- NOTE | 2023-05-05 13:46 | ED Physician Documentation ---
PD HPI BACK PAIN - Stated complaint Stated Complaint: BACK PX - Chief complaint Chief Complaint: Back Pain - History obtained from History obtained from: Patient - History of Present Illness Timing - onset: Today Timing - duration: Hours Timing - details: Abrupt onset, Still present Location: Lower, Left Quality: Pain, Spasm, Sharp, Similar to prior episodes Associated symptoms: No: Fever, Weakness, Numbness, Incontinent of urine, Unable to urinate, Hematuria, Incontinent of stool Improves with: Rest, Position, Meds Contributing factors: Lifting, Twisting Similar symptoms before: Diagnosis (sciatica) Recently seen: Not recently seen - Additional information Additional information: Previously well 33-year-old Joann Paul fell asleep on her couch last night and awoke this morning with severe back pain. She has had similar back pain to this previously with a episode of sciatica. She denies any difficulty with bowel or bladder denies any numbness has severe pain when she is attempts to ambulate. 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 HEENT: None Psych: Depression, Anxiety, Post traumatic stress disorder Musculoskeletal: None Derm: Herpes zoster - Past Surgical History Past Surgical History: No - Present Medications Home Medications: Ambulatory Orders Medication Instructions Recorded Confirmed Cyclobenzaprine [Flexeril] 10 mg PO TID PRN #20 tablet 05/05/23 HYDROcod/ACETAM 5/325 [[place] 5/325] 1 - 2 tablet PO Q6H PRN #14 tablet 05/05/23 - Allergies Allergies/Adverse Reactions: Allergies Allergy/AdvReac Type Severity Reaction Status Date / Time Penicillins Allergy Hives Verified 05/05/23 12:14 - Social History Does the pt smoke?: No Smoking Status: Never smoker Does the pt drink ETOH?: Yes Does the pt have substance abuse?: Yes - Immunizations Immunizations are current?: Yes - POLST Patient has POLST: No PD ED PE NORMAL - Vitals Vital signs reviewed: Yes (normal ) - General General: No acute distress, Well developed/nourished - HEENT HEENT: Atraumatic, PERRL, EOMI - Neck Neck: Supple, no meningeal sign, No bony TTP - Respiratory Respiratory: No respiratory distress - Back Back: No CVA TTP, No spinal TTP, Other (TTP soft tissue to the paraspinous muscles on the lower left radiating into the sciatic notch. ) - Derm Derm: Normal color, Warm and dry, No rash - Extremities Extremities: No deformity, No edema - Neuro Neuro: Alert and oriented X 3, rig manager 2-12 intact, No motor deficit, No sensory deficit, Normal speech Eye Opening: Spontaneous Motor: Obeys Commands Verbal: Oriented GCS Score: 15 - Psych Psych: Normal mood, Normal affect Results - Vitals Vitals: Vital Signs - 24 hr 05/05/23 12:11 Temperature 36.4 C L Heart Rate 58 L Respiratory 20 Rate Blood Pressure 110/74 O2 Saturation 100 Oxygen O2 Source Room air PD Medical Decision Making - ED course Complexity details: reviewed old records, considered differential, d/w patient ED course: 33-year-old female with a prior history of sciatica has an episode of sciatica after falling asleep on her couch. She had a very painful morning she was given some Toradol in the rig on the way to the hospital with some improvement in her pain. She has pain down into the left sciatic notch and she is administered 10 mg of dexamethasone here in the emergency department. We will place her on a short course of narcotic pain reliever and muscle relaxant and give her a 2-day note for work. Departure - Departure Disposition: 01 Home, Self Care Clinical Impression: Sciatica Qualifiers: Laterality: left Qualified Code(s): M54.32 - Sciatica, left side Condition: Stable Instructions: ED Sciatica Follow-Up: [facility] [Provider Group] Prescriptions: Cyclobenzaprine [Flexeril] 10 mg PO TID PRN #20 tablet PRN Reason: Spasms HYDROcod/ACETAM 5/325 [[place] 5/325] 1 - 2 tablet PO Q6H PRN #14 tablet PRN Reason: Pain Comments: Joann, today looks like you have a recurrence of your sciatica and we are expecting this to last about 2 to 5 days. We have given you a dose of dexa methasone here in the emergency department and this may speed things up a bit. I have E scribed some [place] and [place] to the [facility] in [place]. Forms: Activity restrictions
== END 2023-05-05 14:25 | disposition home or self-care (01) ==
LOC: EDUNIT# → ED 12:08
DX: M54.32 Sciatica, left side (principal)
CPT/HCPCS: 99283; A9270

== ENCOUNTER 2023-06-05 21:57 | Emergency (ER) | payer OTHER ==
[2023-06-05 22:39] LABS: RAPID STREP SCREEN Negative (Negative)
[2023-06-05] MEDS: DEXAMETHASONE 10 MG/ML VIAL PO STA (23:18)
[2023-06-05] MEDS: CHERRY SYRUP 10 ML UDC PO ONE (23:18)
[2023-06-05] MEDS: KETOROLAC 60 MG/2 ML VIAL IM STA (23:19)
[2023-06-05 23:20] LABS: B. PARAPERTUSSIS- RESP PCR PAN NOT DETECTED; B. PERTUSSIS- RESP PCR PANEL NOT DETECTED; C. PNEUMONIAE- RESP PCR PANEL NOT DETECTED; CORONAVIRUS 229E-RESP PCR NOT DETECTED; CORONAVIRUS HKU1-RESP PCR NOT DETECTED; CORONAVIRUS NL63-RESP PCR NOT DETECTED; CORONAVIRUS OC43-RESP PCR NOT DETECTED; HUMAN METAPNEUMOVIRUS NOT DETECTED; INFLUENZA A- RESP PCR PANEL NOT DETECTED; INFLUENZA B - RESP PCR PANEL NOT DETECTED; M. PNEUMONIAE- RESP PCR PANEL NOT DETECTED; PARAINFLUENZA VIRUS 1 NOT DETECTED; PARAINFLUENZA VIRUS 2 NOT DETECTED; PARAINFLUENZA VIRUS 3 NOT DETECTED; PARAINFLUENZA VIRUS 4 NOT DETECTED; RHINOVIRUS/ENTEROVIRUS DETECTED; RSV- RESP PCR PANEL NOT DETECTED; SARS-CoV-2 -RESP PCR PANEL NOT DETECTED
--- NOTE | 2023-06-05 23:37 | ED Physician Documentation ---
PD HPI HEENT - Stated complaint Stated Complaint: SORE THROAT,CONGESTION - Chief complaint Chief Complaint: Heent - History obtained from History obtained from: Patient - Additional information Additional information: The pt comes to the ED for CC of sore throat and nasal congestion x 3 days. She's had some aches and chills. No N/V/D. No chest or abd pain. No specific sick contacts. PD PAST MEDICAL HISTORY - Past Medical History Past Medical History: Yes Cardiovascular: None Respiratory: None Neuro: None Endocrine/Autoimmune: None GI: None [employer]ISH[employer]: None : None HEENT: None Psych: Depression, Anxiety, Post traumatic stress disorder Musculoskeletal: None Derm: Herpes zoster - Past Surgical History Past Surgical History: No - Present Medications Home Medications: Ambulatory Orders Medication Instructions Recorded Confirmed Benzonatate [Tessalon] 200 mg PO TID PRN #30 cap 06/05/23 Codeine Phosphate/Guaifenesin 5 - 10 ml PO Q6H PRN #100 ml 06/05/23 [Guaifen-Codeine 200-20 mg/10Ml] - Allergies Allergies/Adverse Reactions: Allergies Allergy/AdvReac Type Severity Reaction Status Date / Time Penicillins Allergy Hives Verified 06/05/23 22:10 - Social History Does the pt smoke?: No Smoking Status: Never smoker Does the pt drink ETOH?: Yes Does the pt have substance abuse?: Yes - Immunizations Immunizations are current?: Yes - POLST Patient has POLST: No PD ED PE NORMAL - Vitals Vital signs reviewed: Yes - General General: Alert and oriented X 3, No acute distress, Well developed/nourished - HEENT HEENT: Atraumatic, PERRL, EOMI, Moist mucous membranes, Other (Mild erythema) - Neck Neck: Supple, no meningeal sign, No adenopathy - Cardiac Cardiac: RRR, No murmur - Respiratory Respiratory: No respiratory distress, Clear bilaterally - Abdomen Abdomen: Soft, Non tender, Non distended - Derm Derm: Normal color, Warm and dry, No rash - Extremities Extremities: No deformity - Neuro Neuro: Alert and oriented X 3 - Psych Psych: Normal mood, Normal affect Results - Vitals Vitals: Oxygen O2 Source Room air - Labs Labs: Microbiology 06/05/23 22:00 Group A Strep Throat Culture - Final Throat MIXED OROPHARYNGEAL JORGE PRESENT. NO BETA STREP PRESENT IN CULTURE. Laboratory Tests 06/05/23 06/05/23 22:00 22:00 Nasal Adenovirus (PCR) NOT DETECTED Nasal B. parapertussis DNA (PCR) NOT DETECTED Nasal Coronavir 229E PCR NOT DETECTED Nasal Coronavir HKU1 PCR NOT DETECTED Nasal Coronavir NL63 PCR NOT DETECTED Nasal Coronavir OC43 PCR NOT DETECTED Nasal Enterovir/Rhinovir PCR DETECTED A Nasal Influenza B PCR NOT DETECTED Nasal Influenza A PCR NOT DETECTED Nasal Parainfluen 1 PCR NOT DETECTED Nasal Parainfluen 2 PCR NOT DETECTED Nasal Parainfluen 3 PCR NOT DETECTED Nasal Parainfluen 4 PCR NOT DETECTED Nasal RSV (PCR) NOT DETECTED Nasal B.pertussis DNA PCR NOT DETECTED Nasal C.pneumoniae (PCR) NOT DETECTED Lm Human Metapneumo PCR NOT DETECTED Nasal M.pneumoniae (PCR) NOT DETECTED Nasal SARS-CoV-2 (PCR) NOT DETECTED Group A Strep Rapid Negative PD Medical Decision Making - ED course Complexity details: reviewed results, re-evaluated patient, considered differential, d/w patient ED course: Pt was treated symptomatically with Toradol and dexamethasone, after which she reported feeling somewhat better. Strep was negative, but she tested positive for rhinovirus. We have discussed home management of the sx, expected duration of illness, and the usual indications for return. Departure - Departure Disposition: 01 Home, Self Care Clinical Impression: Rhinovirus infection Condition: Stable Instructions: ED Viral Syndrome Prescriptions: Codeine Phosphate/Guaifenesin [Guaifen-Codeine 200-20 mg/10Ml] 5 - 10 ml PO Q6H PRN #100 ml PRN Reason: Cough Benzonatate [Tessalon] 200 mg PO TID PRN #30 cap PRN Reason: Cough Comments: Your viral panel was positive for rhinovirus, a common upper respiratory virus that can cause cold to flulike symptoms. This can last up to a couple weeks, though it usually begins to decrease in intensity after the first week or so. Most of the treatment is just geared toward controlling symptoms until your body fights off the virus, as there is no specific treatment for rhinovirus. Prescriptions for cough medications have been electronically transmitted to the [facility] in [place]. Please drink plenty of fluids and take the next couple of days off of work. You may take ibuprofen and/or Tylenol as needed for any discomforts. Please follow-up with your primary care physician as needed. Forms: PCP List, Activity restrictions Discharge Date/Time: 06/05/23 23:48
[2023-06-05 23:48] VITALS: BP 117/76; O2SAT 97
== END 2023-06-05 23:48 | disposition home or self-care (01) ==
LOC: ED 21:57
DX: B34.8 Other viral infections of unspecified site (principal); Z11.52 Encounter for screening for COVID-19
CPT/HCPCS: 87070; 87430; 87633; 96372; 99283; A9270